=== PATIENT | female | born 1970 | race African-American/Black ===

== ENCOUNTER 2017-02-02 06:49 | Day surgery (SDC) | payer OTHER ==
[2017-01-30 17:45] VITALS: BMI 41.0
[2017-02-02] MEDS ORDERED: LIDOCAINE HCL 1%, 10 MG/ML (20ML VIAL) ONE ×2 (08:44→10:56)
[2017-02-02] MEDS ORDERED: MIDAZOLAM HCL 2 MG/2 ML SINGLE DOSE VIAL ONE (10:22)
[2017-02-02] MEDS ORDERED: PROPOFOL 20 ML ONE ×4 (10:22→11:10)
[2017-02-02] MEDS ORDERED: ceFAZolin SODIUM 1 GM VIAL IVPB ONE (10:48)
[2017-02-02] MEDS ORDERED: LIDOCAINE HCL 1%, 10 MG/ML (50 mL VIAL) IJ ONE (10:55)
[2017-02-02 12:03] VITALS: TEMP 97.7
[2017-02-02] MEDS ORDERED: oxyCODONE HCL 5 MG TABLET PO PRN (12:06)
[2017-02-02] MEDS ORDERED: ONDANSETRON 4 MG/2 ML VIAL IVPUSH PRN (12:06)
[2017-02-02] MEDS ORDERED: LACTATED RINGERS SOLUTION 1,000 ML IV SCH (12:15)
--- NOTE | 2017-02-02 13:06 | OP ---
DATE OF OPERATION: 02/02/2017 PREOPERATIVE DIAGNOSIS: Right breast ductal carcinoma in situ. POSTOPERATIVE DIAGNOSIS: Right breast ductal carcinoma in situ. PROCEDURE: Right breast bracket wire lumpectomy and primary reconstruction. SURGEON: Gudelia Vazquez MD ANESTHESIA: Local, IV sedation. ESTIMATED BLOOD LOSS: Minimal. COMPLICATION: None. DISPOSITION: Stable at end of procedure. INDICATION FOR PROCEDURE: The patient presented with a screening mammogram that noted a wide area of microcalcifications in the upper and upper inner right breast. In a needle biopsy that I could do under ultrasound, she had a palpable mass from the right breast wall at the 1 o'clock retroareolar location, showed a ductal carcinoma in situ that was ER/IL positive. She had an MRI that noted this wide area and a questionable area on the left, a biopsy of the left that was benign. Recommendation was a wire-localized lumpectomy and further management depending on the pathology results. The procedure was discussed, with all the questions answered. PROCEDURE IN DETAIL: Patient was brought to [facility], taken to breast imaging, where 2 wires were used to localize the wide area of calcifications in the upper, upper inner right breast. She was then brought to the operating room. After IV sedation, IV antibiotics, the right breast was prepped and draped in the usual sterile fashion. A radial incision was made in the upper inner right breast, once the area was anesthetized with 1% lidocaine without epinephrine. A wide lumpectomy was performed, to include the 2 wires posteriorly down to fat, then mediolaterally as well as I actually took the nipple down to dermis. As the calcification did seem to extend to the nipple but I did shave down the nipple to the dermis. This entire specimen was tagged with a long stitch lateral, short stitch superior, sent for specimen radiograph. The specimen radiograph showed all the calcifications to be within the specimen. They appeared slightly close in a couple edges but it was difficult to say because the specimen is folded. She tolerated the procedure well. Hemostasis was assured with electrocautery. There was a wide defect left from this wide lumpectomy, almost quadrantectomy of the upper inner right breast. Therefore, superior, inferior, medial, lateral flaps were raised and tissue transfer procedure was performed to fill in the defect that measured 10 cm x 10 cm. The parenchyma approximated in 3 layers of interrupted 2-0 Vicryl. Skin approximated with interrupted 3-0 Vicryl, running 4-0 Prolene. A sterile dressing with Tegaderm and 4 x 4 was applied. She tolerated the procedure well, was taken to recovery in good condition. Ronal FRANKS/[id number]
[2017-02-02 14:14] VITALS: BP 132/78; PULSE 86
--- NOTE | 2017-02-04 16:19 | PATH ---
Surgical Pathology Report Patient Name: PANKAJ NOLEN [facility]. Rec. #: [id number] /Age/Gender: 1970 (Age: 47) / F Account: [id number] Location: [facility] SURGICAL Taken: 02/02/2017 Received: 02/02/2017 Reported: 02/04/2017 Physicians: Gudelia Vazquez M.D. Specimen(s) Received RIGHT BREAST LUMPECTOMY Clinical History DCIS Final Diagnosis BREAST, RIGHT, LUMPECTOMY: MASS FORMING DUCTAL CARCINOMA IN SITU (DCIS), INTERMEDIATE NUCLEAR GRADE, SOLID, CRIBRIFORM AND FOCALLY PAPILLARY PATTERNS, WITH FOCAL APOCRINE FEATURES, CENTRAL COMEDO-TYPE NECROSIS, CALCIFICATIONS, LOBULAR EXTENSIONS AND PERIDUCTAL FIBROSIS. DCIS EXTENT: DCIS FORMS 2.6 CM MASS (GROSS MEASUREMENT); PRESENT ON 11 OF 11 EXAMINED SLIDES WITH THE GREATEST EXTENT ON ONE SLIDE OF 2.7 CM (MICROSCOPICALLY). SURGICAL RESECTION MARGINS: DCIS FOCALLY ABUTS CAUTERIZED INKED ANTERIOR MARGIN; DCIS IS <1 MM FROM LATERAL AND INFERIOR MARGINS, 1.0 MM FROM DEEP AND SUPERIOR MARGINS, 2.0 MM FROM MEDIAL MARGIN. SURROUNDING BREAST TISSUE: FIBROCYSTIC CHANGE WITH FOCAL USUAL DUCTAL HYPERPLASIA, CYSTIC-APOCRINE METAPLASIA, FOCAL ADENOSIS AND STROMAL FIBROSIS. PATHOLOGIC STAGING: REFER TO CHECKLIST BELOW. RECEPTOR STATUS: REFER TO CHECKLIST BELOW. Comment: Immunohistochemical stains for p63 and SMM-HC performed and interpreted [facility] on blocks 2, 4 and 9 highlight preserved myoepithelial cells around DCIS. No definitive invasion is identified. Comments DCIS of Breast: Surgical Pathology Cancer Case Summary Based on AJCC/UICC TNM, 7th edition Procedure _x_ Excision with image-guided localization Lymph Node Sampling __x_ Not performed Specimen Laterality _x_ Right Estimated size (extent) of DCIS : At least 2.6 cm mass (grossly) Number of blocks with DCIS: 11 Number of blocks examined: 11 Largest extent on one slide: 2.7 cm (microscopically) Nuclear Grade _x_ Grade II (intermediate) Necrosis _x_ Present, central (expansive "comedo" necrosis) Microcalcifications _x_ Present in DCIS Margins _x_ Margin positive for DCIS: anterior _x_ Margins close to (= 1 mm) DCIS: lateral, inferior, superior and deep _x_ Margin uninvolved by DCIS (=2mm): medial Lymph Node Involvement: _x_ Not applicable Pathologic Staging (pTNM) Primary Tumor (pT): pTis (DCIS) Regional Lymph Nodes (pN): pNX Biomarker Studies Results of ER and IL studies performed on prior biopsy ([id number]) at [facility] are as follows: ER (clone [id number] mouse monoclonal antibody by [employer]): 90% nuclear staining with moderate to strong intensity (Positive). IL (clone16 mouse monoclonal antibody by [employer]): 70% nuclear staining with weak to moderate intensity (Positive). Positive and negative controls (internal if applicable) show appropriate results. Formalin fixation and cold ischemic times are within current ASCO/CAP recommendations for ER, IL and Her2 testing. Electronically Signed Tani Gonzalez M.D. Gross Description Received fresh on an AccuGrid, labeled "right breast lumpectomy" is a 10.0 x 6.0 x 3.3 cm hair-yellow, irregular, portion of fibroadipose tissue with 2 needle localization wires present. There is a short suture marking the superior aspect and a long suture marking the lateral aspect, per the surgeon. There is no skin or nipple present. The specimen is inked as follows: superior and lateral blue; inferior green; medial yellow; anterior red; deep black. The specimen is serially sectioned from lateral to medial. Sectioning reveals a 2.6 x 2.0 x 1.5 cm hair, firm mass at 0.3 cm from the inferior margin and 0.3 cm from the deep margin grossly. Additionally, the mass is at 0.5 cm from the superior margin grossly. The remaining margins grossly appear clear of the mass. The remaining breast parenchyma displays multifocal white fibrous tissue. Spanish Professor sections are submitted in 11 cassettes as follows: 1-4-one full face section of mass each with inferior and deep margins; 0-6-xtyhwafp margin; 8-additional inferior margin; 9-anterior margin; 10-lateral margin; 11-medial margin. Time to fixation: <1h Total formalin fixation time: ~6h 02/02/201702/02/2017
== END 2017-02-02 14:14 | disposition home or self-care (01) ==
LOC: JASU-SURG 06:49
PROVIDERS: ATTEND Surgery
PROC: 0HX5XZZ Transfer Chest Skin, External Approach (ICD-10-PCS; 2017-02-02)
PROC: 0HBT0ZZ Excision of Right Breast, Open Approach (ICD-10-PCS; principal; 2017-02-02 10:00)
DX: D05.91 Unspecified type of carcinoma in situ of right breast (principal)
CPT/HCPCS: 19281; 84703; 88307-TC; 88341-TC; 88342-TC; 94760

== ENCOUNTER 2017-02-06 08:33 | Day surgery (SDC) | payer OTHER ==
[2017-02-05 15:59] VITALS: BMI 41.0
[~2017-02-06 08:33] MED LIST: LIDOCAINE HCL 1%, 10 MG/ML (20ML VIAL) IJ ONE
[2017-02-06] MEDS ORDERED: PROPOFOL 20 ML ONE ×3 (11:06→12:01)
[2017-02-06] MEDS ORDERED: MIDAZOLAM HCL 2 MG/2 ML SINGLE DOSE VIAL ONE (11:07)
[2017-02-06] MEDS ORDERED: ceFAZolin SODIUM 1 GM VIAL IVPB ONE (11:20)
[2017-02-06] MEDS ORDERED: ceFAZolin SODIUM 1 GM VIAL ONE (11:23)
[2017-02-06] MEDS ORDERED: LIDOCAINE HCL 1%, 10 MG/ML (20ML VIAL) IJ ONE ×2 (11:29)
[2017-02-06] MEDS ORDERED: LIDOCAINE HCL 1%, 10 MG/ML (20ML VIAL) ONE ×2 (11:30→11:44)
[2017-02-06] MEDS ORDERED: KETOROLAC TROMETHAMINE 30 MG/1 ML VIAL ONE (11:57)
[2017-02-06] MEDS ORDERED: oxyCODONE HCL 5 MG TABLET PO PRN (12:05)
[2017-02-06] MEDS ORDERED: ONDANSETRON 4 MG/2 ML VIAL IVPUSH PRN (12:05)
[2017-02-06] MEDS ORDERED: HYDROmorphone HCL CARPU-JECT 1 MG/1 ML DISP.SYRIN IVPUSH PRN (12:05)
[2017-02-06] MEDS ORDERED: LACTATED RINGERS SOLUTION 1,000 ML IV SCH (12:15)
[2017-02-06 13:34] VITALS: TEMP 98.2
[2017-02-06] MEDS ORDERED: ONDANSETRON 4 MG/2 ML VIAL ONE (14:20)
[2017-02-06 17:15] VITALS: BP 108/56; PULSE 80
--- NOTE | 2017-02-09 12:35 | OP ---
DATE OF OPERATION: 02/06/2017 PREOPERATIVE DIAGNOSIS: Right breast ductal carcinoma in situ. POSTOPERATIVE DIAGNOSIS: Right breast ductal carcinoma in situ. PROCEDURE: Right breast reexcision lumpectomy with primary reconstruction. SURGEON: Gudelia Vazquez MD ANESTHESIA: Local, IV sedation. ESTIMATED BLOOD LOSS: Minimal. COMPLICATION: None. DISPOSITION: Stable at end of procedure. INDICATION: The patient had a right lumpectomy for DCIS that showed multiple close and 1 positive margin. Therefore, my recommendation was reexcision. The procedure was discussed, with all the questions answered. PROCEDURE IN DETAIL: Patient was brought to [facility], taken in to the operating room IV sedation and IV antibiotics. The right breast was prepped and draped in the usual sterile fashion. The area in the upper right breast was anesthetized with 1% lidocaine without epinephrine. The prior incision in the right 1 o'clock radially oriented incision was excised with an ellipse of skin to have a new anterior skin margin. I then took several different margins. The skin was the new anterior margin with a long stitch lateral, short stitch superior. I then took a new lateral margin with a stitch at the old margin. I next took a new inferior margin with a long stitch lateral, short stitch superior. I then took a new superior margin, with a stitch marking the old margin. Number 4 is actually a right breast new inferior margin stitch marking the old margin and then I took a new superior margin with a stitch at the old margin. All these specimens were sent to Pathology in formalin. Ronal FRANKS/[id number]
--- NOTE | 2017-02-09 19:44 | OP ---
DATE OF OPERATION: 02/06/2017 PREOPERATIVE DIAGNOSIS: Right breast ductal carcinoma in situ. POSTOPERATIVE DIAGNOSIS: Right breast ductal carcinoma in situ. PROCEDURE: Right breast reexcision lumpectomy and primary reconstruction. SURGEON: Gudelia Greer M.D. ANESTHESIA: Local IV sedation. ESTIMATED BLOOD LOSS: Minimal. COMPLICATIONS: None. DISPOSITION: Stable. INDICATION FOR PROCEDURE: Patient had a right lumpectomy that noted several close margins and 1 margin at the anterior margin, therefore recommendation was a re-excision. The procedure was discussed with her, and all her questions answered. PROCEDURE IN DETAIL: Patient brought to [facility], taken into the operating room, and after IV sedation, IV antibiotics, the right breast was prepped in usual sterile fashion, the upper inner right breast anesthetized with 1% lidocaine without epinephrine. An ellipse of skin was taken sharply with a scalpel 15 blade as a new anterior margin that was overlying the lumpectomy, the prior lumpectomy cavity. This was tagged with a long stitch to lateral, short to superior. Sent as a new anterior margin right breast. Next, several other margins were taken as well. The next one was a right breast new lateral margin with stitch at the old margin. Next was a new inferior margin with a long stitch to lateral, short to superior. Next was a right breast new superior margin with stitch at the old margin, and last was a new posterior right breast margin with stitch at the old margin. Once all these specimens were sent to pathology for permanent section in formalin, hemostasis with electrocautery. There was a wide defect left, 10 cm x 10 cm, and therefore tissue transfer procedure was performed. Superior, inferior, medial flaps were raised, and the tissue was moved into the lumpectomy cavity, and the parenchyma was approximated in 2 layers of interrupted 2-0 Vicryl. The skin was then approximated with interrupted 2-0 Vicryl running 4-0 Biosyn. The sterile dressing of Tegaderm, 4x4s applied. She tolerated procedure well, was taken to recovery in good condition. GUDELIA GREER M.D. [id number]
--- NOTE | 2017-02-11 15:38 | PATH ---
Surgical Pathology Report Patient Name: PANKAJ NOLEN [facility]. Rec. #: [id number] /Age/Gender: 1970 (Age: 47) / F Account: [id number] Location: [facility] SURGICAL Taken: 02/06/2017 Received: 02/06/2017 Reported: 02/11/2017 Physicians: Gudelia Vazquez M.D. Specimen(s) Received A: RIGHT BREAST NEW ANTERIOR MARGIN B: RIGHT BREAST NEW LATERAL MARGIN C: RIGHT BREAST NEW INFERIOR MARGIN D: RIGHT BREAST NEW SUPERIOR MARGIN E: RIGHT BREAST NEW POSTERIOR MARGIN Clinical History DCIS Final Diagnosis A. BREAST, RIGHT, NEW ANTERIOR MARGIN, EXCISION: BENIGN SKIN WITH DERMAL SCAR FORMATION AND SURROUNDING INFLAMMATION. BENIGN BREAST TISSUE. NEGATIVE FOR DCIS. CHANGES CONSISTENT WITH PRIOR SURGICAL SITE PRESENT. B. BREAST, RIGHT, NEW LATERAL MARGIN, EXCISION: RESIDUAL DUCTAL CARCINOMA IN SITU (DCIS), INTERMEDIATE NUCLEAR GRADE, SOLID TYPE WITH CENTRAL NECROSIS AND APOCRINE FEATURES. DCIS IS >2.0 MM FROM THE NEW LATERAL MARGIN. CHANGES CONSISTENT WITH PRIOR SURGICAL SITE PRESENT. C. BREAST, RIGHT, NEW INFERIOR MARGIN, EXCISION: RESIDUAL DUCTAL CARCINOMA IN SITU (DCIS), INTERMEDIATE NUCLEAR GRADE, SOLID TYPE, WITH CENTRAL COMEDO-TYPE NECROSIS. DCIS IS 1.5 MM FROM THE MEDIAL MARGIN OF THIS SPECIMEN; AND >2.0 MM FROM OTHER MARGINS. SURROUNDING BREAST TISSUE WITH FOCAL ATYPICAL DUCTAL HYPERPLASIA (ADH) AND FIBROCYSTIC CHANGE WITH FOCAL USUAL DUCTAL HYPERPLASIA AND CYSTIC APOCRINE METAPLASIA. CHANGES CONSISTENT WITH PRIOR SURGICAL SITE PRESENT. Comment: immunohistochemical stain for e-cadherin performed an interpreted at [facility] on block C9 is positive supporting usual ductal hyperplasia. D. BREAST, RIGHT, NEW SUPERIOR MARGIN, EXCISION: BENIGN BREAST TISSUE WITH FIBROCYSTIC CHANGE. NEGATIVE FOR DCIS. CHANGES CONSISTENT WITH PRIOR SURGICAL SITE PRESENT. E. BREAST, RIGHT, NEW POSTERIOR MARGIN, EXCISION: BENIGN BREAST TISSUE WITH FIBROCYSTIC CHANGE. NEGATIVE FOR DCIS. CHANGES CONSISTENT WITH PRIOR SURGICAL SITE PRESENT. Electronically Signed Tani Gonzalez M.D. Gross Description A. Received in formalin labeled "right breast new anterior margin" is a 6.4 x 2.3 cm hair-brown, elliptical portion of skin excised to a depth of 1.3 cm. There is a short suture marking the superior aspect and a long suture marking the lateral aspect of the specimen, per the surgeon. The epidermal surface displays a 2.8 cm in length central, linear defect. The specimen is inked as follows: Superior blue; inferior green; lateral tip red; medial tip yellow; deep black. The specimen is serially sectioned from lateral to medial. The specimen is entirely and sequentially submitted in 11 cassettes with the medial tip in cassette 1 and the lateral tip in cassette 11. B. Received in formalin labeled "right breast new lateral margin" is a 4.8 x 4.4 x 1.6 cm irregular portion of fibroadipose tissue with a suture marking the old margin, per the surgeon. The new margin is inked green and the specimen is serially sectioned. The specimen is submitted entirely in 12 cassettes. C. Received in formalin labeled "right breast new inferior margin" is a 7.5 x 4.6 x 1.5 cm irregular portion of fibroadipose tissue with a short stitch marking the superior aspect and a long stitch marking the lateral aspect of the specimen, per the surgeon. The specimen is inked as follows: Superior and lateral blue; inferior green; medial yellow; anterior red; deep black. The specimen is serially sectioned from lateral to medial. Construction Scheduler sections are submitted in 11 cassettes as follows: 1-medial margin; 1-9-[id number] fibrous tissue with superior and inferior margins; 9-anterior margin; 10-deep margin; 11-lateral margin. D. Received in formalin labeled "right breast new posterior margin" is a 4.5 x 4.3 x 1.3 cm irregular portion of fibroadipose tissue with a suture marking the old margin, per the surgeon. The new margin is inked black and the specimen is serially sectioned. Construction Scheduler sections are submitted in 5 cassettes. E. Received in formalin labeled "right breast new posterior margin" is a 7.4 x 4.8 x 1.5 cm irregular portion of fibroadipose tissue with a suture marking the old margin, per the surgeon. The new margin is inked black and the specimen is serially sectioned. Construction Scheduler sections are submitted in 8 cassettes. 02/06/201702/06/2017
== END 2017-02-06 17:00 | disposition home or self-care (01) ==
LOC: JASU-SURG 08:33
PROVIDERS: ATTEND Surgery
PROC: 0JX60ZB Transfer Chest Subcutaneous Tissue and Fascia with Skin and Subcutaneous Tissue, Open Approach (ICD-10-PCS; 2017-02-06)
PROC: 0HBT0ZZ Excision of Right Breast, Open Approach (ICD-10-PCS; principal; 2017-02-06 10:00)
DX: D05.91 Unspecified type of carcinoma in situ of right breast (principal)
CPT/HCPCS: 84703; 88305-TC; 88342-TC; 94760

== ENCOUNTER 2017-05-28 05:02 | Inpatient (IN) | payer OTHER ==
[2017-05-27 12:12] VITALS: BMI 42.0
[2017-05-28] MEDS ORDERED: LIDOCAINE HCL 4% PRESERVE-FREE 5 ML AMP ONE (07:14)
[2017-05-28] MEDS ORDERED: ISOSULFAN BLUE 10 MG/ML VIAL SQ ONE (07:14)
[2017-05-28] MEDS ORDERED: HEPARIN NA (PORCINE) 5,000 UNITS/ML 1ML VIAL ONE (07:14)
[2017-05-28] MEDS ORDERED: PROPOFOL 20 ML ONE ×5 (07:38→13:29)
[2017-05-28] MEDS ORDERED: ROCURONIUM BROMIDE 50 MG/5 ML VIAL ONE ×4 (07:38→13:22)
[2017-05-28] MEDS ORDERED: MIDAZOLAM HCL 2 MG/2 ML SINGLE DOSE VIAL ONE ×2 (07:38)
[2017-05-28] MEDS ORDERED: LIDOCAINE HCL 1%, 10 MG/ML (20ML VIAL) ONE (07:43)
[2017-05-28] MEDS ORDERED: BUPIVACAINE HCL/PF 0.25% (2.5MG/ML) 10 ML VIAL ONE (07:43)
[2017-05-28] MEDS ORDERED: BUPIVACAINE LIPOSOME/PF (EXPAREL) 266 MG/20 ML VIAL NR ONE (08:30)
[2017-05-28] MEDS ORDERED: ceFAZolin SODIUM 1 GM VIAL IVPB ONE (09:25)
[2017-05-28] MEDS ORDERED: ceFAZolin SODIUM 1 GM VIAL ONE ×3 (09:31→18:20)
[2017-05-28] MEDS ORDERED: HYDROmorphone HCL/PF 1 MG/ML VIAL (FOR PYXIS CHARGING ONLY) ONE ×2 (09:38→09:53)
[2017-05-28] MEDS ORDERED: HEPARIN NA (PORCINE) 5,000 UNITS/ML 1ML VIAL SQ ONE (09:49)
[2017-05-28] MEDS ORDERED: DESFLURANE GAS 240 ML BOTTLE IH ONE (10:11)
[2017-05-28] MEDS ORDERED: PHENYLEPHRINE HCL 10 MG/1 ML SINGLE DOSE VIAL ONE ×2 (10:50→16:19)
--- NOTE | 2017-05-28 13:58 | OP ---
Operative Note - Note: Operative Date: 05/28/17 Pre-Operative Diagnosis: Lung injury Operation: Left upper lobe wedge resection/repair of lung injury Findings: tiny cautery injury that appeared to be associated with air-leak Post-Operative Diagnosis: Same as Pre-op Surgeon: Jesus Rodriguez Anesthesia: General Specimens Removed: ISSCA wedge Estimated Blood Loss (mls): 5
[2017-05-28] MEDS ORDERED: LIDOCAINE HCL 4% PRESERVE-FREE 5 ML AMP NR ONE (15:36)
[2017-05-28] MEDS ORDERED: GLYCOPYRROLATE 0.2 MG/1 ML VIAL ONE (19:37)
[2017-05-28] MEDS ORDERED: NEOSTIGMINE METHYLSULFATE 0.5 MG/ML - 10 ML MDV ONE (19:37)
[2017-05-28] MEDS ORDERED: ONDANSETRON 4 MG/2 ML VIAL ONE (19:44)
[2017-05-28] MEDS ORDERED: DEXAMETHASONE SOD PHOSPHATE 4 MG/1 ML VIAL ONE (19:44)
[2017-05-28] MEDS ORDERED: KETOROLAC TROMETHAMINE 30 MG/1 ML VIAL ONE (19:48)
[2017-05-28] MEDS ORDERED: ONDANSETRON 4 MG/2 ML VIAL IVPUSH PRN (20:46)
[2017-05-28] MEDS ORDERED: DEXAMETHASONE SOD PHOSPHATE 4 MG/1 ML VIAL IVPUSH PRN (20:46)
[2017-05-28] MEDS ORDERED: PROCHLORPERAZINE MALEATE 25 MG SUPP.RECT PR PRN (20:48)
[2017-05-28] MEDS ORDERED: METOCLOPRAMIDE HCL INJECTION 10 MG/2 ML VIAL IVPB PRN (20:48)
[2017-05-28] MEDS: HYDROmorphone HCL CARPU-JECT 2 MG/1 ML DISP.SYRIN ONE ×2 (21:00→21:10)
[2017-05-28] MEDS ORDERED: HYDROmorphone *PCA* 10MG/50ML DISP.SYRIN PCA ONE (21:00)
[2017-05-28] MEDS ORDERED: HEPARIN NA (PORCINE) 5,000 UNITS/ML 1ML VIAL SQ SCH (21:00)
[2017-05-28] MEDS ORDERED: D5-1/2NS+10 MEQ KCL - 1,000 ML IV SCH (21:00)
[2017-05-28] MEDS ORDERED: LACTATED RINGERS SOLUTION 1,000 ML IV SCH (21:00)
[2017-05-28] MEDS ORDERED: HYDROmorphone HCL CARPU-JECT 2 MG/1 ML DISP.SYRIN IVPUSH ONE (21:37)
--- NOTE | 2017-05-28 22:01 | OPR ---
DATE OF OPERATION: 05/28/17 ATTENDING SURGEON: Isaac Cárdenas CO-SURGEON: Barron Reyna FLIGHT COMMUNICATIONS SPECIALIST: Nga Charles PREOPERATIVE DIAGNOSIS: Right breast cancer and left acquired absence of breast POSTOPERATIVE DIAGNOSIS: same PROCEDURE PERFORMED: 1. Bilateral breast reconstruction with JINA (deep inferior epigastric perforators) flap. 2. Bilateral rib resection. 3. Bilateral ligation of SIEV (superficial inferior epigastric vein). 4. Bilateral transversus abdominis plane block for postoperative pain relief. COMPLICATIONS: None. ESTIMATED BLOOD LOSS: 400 mL DESCRIPTION OF PROCEDURE: The patient was brought to the OR in conjunction with Anne-Marie , the breast surgeon. Please see her operative note for details of her portion of the procedure. A bilateral mastectomy was performed by anne-marie . Simultaneously , Dr. Cárdenas and Dr. Reyna initiated the breast reconstruction at the abdomen. At the abdomen the previously marked ellipse of tissue from just above the umbilicus down to the pubic hairline was incised using a 15 blade scalpel. Dissection was carried down through the subcutaneous tissues using electrocautery, beveling away from the flap in order to increase the volume of the flap. At the right side, 6 cm off the midline, the superficial inferior epigastric artery and vein were identified. They were meticulously freed of all surrounding tissue, and they were traced down to their origin in the groin where they were ligated and divided and kept in continuity with the flap in case they were needed later in the flap for additional inflow or outflow to the flap. At the left side, 6 cm off the midline the left superficial inferior epigastric artery and vein were identified. Using microsurgical technique, they were meticulously dissected down to their origin in the groin where they were ligated and divided. They were kept in continuity with the left JINA flap in case they were needed later in the case for additional inflow or outflow to the flap. Attention was first paid to harvest of the right JINA flap. The right JINA flap was elevated in a lateral to medial direction using electrocautery until the lateral edge of the rectus abdominis sheath was encountered. At this point, meticulous dissection continued using bipolar cautery, and the dominant perforators to this side, that were identified preoperatively on the MRA, were identified and preserved and kept in continuity with the flap. The anterior rectus fascia was then incised in a superior and inferior direction, and a small cuff of fascia, less than 1 cm, was kept in continuity with the perforators and freed from the surrounding tissue. The perforators were then dissected free of all surrounding tissue. The rectus muscle was atraumatically split in line with its longitudinal fibers, and the perforators were followed down through the rectus muscle to the lateral main branch of the deep inferior epigastric artery. Two perforators were kept in continuity with the flap and dissected in this technique. The main pedicle was then traced back to its origin in the groin where all small branches along the way were clipped and divided. at the groin the takeoff of the deep inferior epigastric artery and vein were identified. On the right side, there was noted to be one large deep inferior epigastric artery and two accompanying large venae comitantes. A single green clamp was applied to the pedicle, medium automatic clips were placed around the deep inferior epigastric artery and two accompanying veins. They were then divided. The flap was weighed and noted to weigh ___1295____ gm. Simultaneously, at the left chest, exposure of the internal mammary artery and vein was performed. The mastectomy pocket was thoroughly irrigated, all points of bleeding were stopped with electrocautery. The pectoralis major muscle was then divided in line with its longitudinal fibers overlying the third rib. Gelpi retractors were placed for exposure. The third rib was scored using electrocautery, and then, the perichondrium surrounding the cartilaginous portion of the third rib was elevated using a periosteal elevator. Then, 2 cm of cartilaginous portion of the rib were removed using a rongeur, and under loupe magnification, the posterior perichondrium was elevated using microsurgical technique and bipolar cautery. Meticulous dissection was performed, and the internal mammary artery and vein were identified. The internal mammary artery and vein were freed of all surrounding tissue for a total length of 2 cm in order to allow microsurgical anastomoses. The operating microscope was brought into position on the left side. The right JINA flap was rotated 180 degrees. It was then placed at the right chest. It was sutured in position using 2-0 Vicryl sutures for temporary securing. The pedicle was placed in alignment with the internal mammary artery and vein. Under the operating microscope, the internal mammary vein had a single green clip applied proximally and a single green clip applied distally, and it was divided in the middle using straight microscissors. The vein lumen was irrigated and measured, and it was noted that a 3 -mm elephant tamer would fit well upon the internal mammary vein. The two veins of the flap pedicle were measured, and it was noted that 2.5 -mm elephant tamer would fit well upon each of these veins. The coupling device was loaded with a 3____ -mm elephant tamer, which was lowered into the operative field under the operating microscope. The antegrade pedicle vein was brought up and through the coupling device. It was everted over the coupling spikes. It was secured in position using the J-Hole. The lumen was irrigated with heparinized saline solution, and the elephant tamer was lowered adjacent to the antegrade portion of the internal mammary vein, the cut end of which was brought up and through the coupling device, everted over the coupling spikes, secured in position using the J-Hole. The lumen was then irrigated with heparinized saline solution. It was noted to be in good position and free of debris. The elephant tamer was closed, creating a secured couple anastomosis. The single green clamp was removed, and there was noted to be excellent flow across the anastomosis. Attention was then paid to the retrograde vein. The veins were measured and a 2.5 mm elephant tamer was selected. The second vein of the pedicle was then brought up and through a 2.5 mm elephant tamer. It was everted over the coupling spikes. It was secured in position using the J-Hole. The elephant tamer was then lowered adjacent to the retrograde internal mammary vein, the cut end of which was brought up and through the coupling device, everted over the coupling spikes, and secured in position using the J-Hole. The lumens were irrigated, noted to be free of debris and in good position. The elephant tamer was closed, and a secured couple anastomosis was created. The single green clamp was removed, and there was noted to be excellent flow across the anastomosis. Attention was then paid to the arterial anastomosis. The pedicle artery was placed in alignment with the internal mammary artery. The internal mammary artery had a single green clamp applied proximally, and a medium automatic green clip applied distally, and it was divided using a straight microscissor. The lumen was irrigated and noted to be free of debris and healthy in appearance. The arterial artery of the flap was placed in alignment with the internal mammary artery, and a hand-sewn anastomosis was performed. The 8-0 nylon was used in an interrupted fashion to perform the hand-sewn anastomosis. The single green clamp was removed, and there was noted to be strong healthier flow across the anastomosis with a very strong audible signal using the hand-held Doppler. At this point, an implantable Doppler was placed for monitoring of the flap postoperatively. Using the Ornelas dissector, a small window was created around the pedicle artery. The cuff of the implantable Doppler was passed around this. It was then secured in position using MicroClips and hooked to the Doppler box where there was noted to be a strong bounding signal within the pedicle artery. This was left attached to the Doppler box and monitored throughout the entirety of the rest of the case, and there was excellent flow throughout the entire rest of this case. The operating microscope was removed. Flap was gently placed within the mastectomy pocket while monitoring the entire time. There was noted to be excellent shape to the flap and the skin was temporarily closed using skin staplers, and attention was paid to reconstruction of the contralateral side. At the left abdomen, the left JINA flap was elevated in a lateral to medial direction using electrocautery until the lateral edge of the rectus abdominis muscle was encountered. Then, dissection continued using bipolar cautery in a meticulous fashion using loupe magnification, and the two dominant perforators identified on the preoperative MRA were encountered and preserved. They were circumferentially freed. An incision was made in the anterior rectus fascia in a superior and inferior direction. A small cuff of fascia was kept adherent to the perforators, approximately 1 cm in size. The perforators were followed down into the rectus muscle freeing all small branches as necessary. The rectus muscle was atraumatically split using Gelpi retractors, and the perforators were traced down to the left deep inferior epigastric artery pedicle. The pedicle was then traced down to its origin in the groin, clipping and dividing all small branches as necessary. At the groin, there was noted to be one large artery and two large venae comitantes. These were clipped with the medium automatic clip material distributor and divided, and the flap was weighed and noted to weigh approximately 1345 gm. Simultaneous to this dissection, at the right chest, exposure of the internal mammary artery and vein was performed. The mastectomy pocket was irrigated, all points of bleeding were stopped with electrocautery. The pectoralis major muscle was divided overlying the third rib in line with its longitudinal fibers. The underlying third rib was exposed. The perichondrium was scored using electrocautery and then freed using a periosteal elevator. Then, 2 cm of cartilaginous portion of the rib were resected using a large rongeur. Under loupe magnification, the posterior perichondrium was elevated and the internal mammary artery and vein were identified. All small branches were divided, and the internal mammary artery and vein were exposed for a length of 2 cm in order to allow microsurgical anastomosis. The left JINA flap was rotated 180 degrees. It was placed at the left chest and temporarily secured in position using 2-0 Vicryl sutures. The pedicle of the flap was placed in alignment with the internal mammary artery and vein. The operating microscope was brought into position. Under the operating microscope, attention was first paid to the venous anastomosis. The internal mammary vein had a clip applied distally and a single green clamp applied Proximally and distally. It was then divided using straight microscissors. The lumen was measured, and noted to be 3 mm. The pedicle vein was measured and noted to be mm. A coupling device was loaded with a 3 _ -mm elephant tamer. It was lowered into the operative field under the operating microscope. The cut end of the pedicle vein was brought up and through the elephant tamer, everted over the coupling spike, secured in position using the J-Hole. The lumen was irrigated with heparinized saline solution, and it was noted to be in good potion and free of all debris. The elephant tamer was lowered adjacent to the internal mammary vein antegrade portion, the cut end of which was brought up and through the coupling device, everted over the coupling spikes, secured in position using the J-Hole, irrigated with heparinized saline solution, noted to be free of debris and in good position. The elephant tamer was closed, creating a secured couple anastomosis. The single green clamp was removed, and there was noted to be excellent flow across the venous anastomosis. Attention was then paid to the retrograde vein. The veins were measured and a 3 mm elephant tamer was selected. The second vein of the pedicle was then brought up and through a 3 mm elephant tamer. It was everted over the coupling spikes. It was secured in position using the J-Hole. The elephant tamer was then lowered adjacent to the retrograde internal mammary vein, the cut end of which was brought up and through the coupling device, everted over the coupling spikes, and secured in position using the J-Hole. The lumens were irrigated, noted to be free of debris and in good position. The elephant tamer was closed, and a secured couple anastomosis was created. The single green clamp was removed, and there was noted to be excellent flow across the anastomosis. Attention was then paid to the arterial anastomosis. The internal mammary artery had a medium clip applied distally, a single green clamp applied proximally. It was then divided using straight microscissors. The lumen was irrigated and noted to be free of debris and healthy in appearance. The pedicle artery was placed in alignment with the internal mammary artery, and a hand-sewn anastomosis was performed using an 8-0 nylon suture in an interrupted fashion. After completion of the hand-sewn anastomosis, the single green clamp was removed, and there was noted to be excellent strong pulsatile flow across the arterial anastomosis and a bounding pedicle. The pedicle was interrogated using the hand-held Doppler. There was noted to be strong, healthy pulsatile flow. For postoperative monitoring, the decision was made to place an implantable Doppler. A small window was created around the pedicle artery using the Ornelas dissector. The Agavideo implantable Doppler cuff was passed around this and secured in position using MicroClips. The Doppler was hooked to the Doppler box, and it was noted to have a strong pulsatile signal. This was monitored throughout the entirety of the rest of the case. The operating microscope was then removed from the field. The flap was gently placed within the mastectomy cavity. The skin incisions were temporarily closed using skin staplers, and there was noted to be excellent shape and symmetry between the left and right breasts. Attention was then paid to closure of the left and right side. The left and right JINA flaps were appropriately shaped, recreating a beautiful natural lateral sweep to the breasts and a sharp inframammary fold. The skin paddle of the flaps was marked to replace the areola in a circular pattern. This was preserved. The rest of the skin along the flaps was deepithelialized using facelift scissors. The flaps were then inset in the appropriate position, and skin incisions were closed in multiple layers with 3-0 PDS as the deep layer and 4-0 Monocryl as the final running subcuticular closure. At the left and right side, prior to closure, an intercostalnerve block was performed using 0.25% Marcaine, 15 mL of 0.25% Marcaine was used on the left and 15 mL was used on the right, injecting small amounts of Marcaine adjacent to the intercostal nerve and rib space 2-7 in order to provide Postoperative pain relief. Prior to closing the incisions, a No. 19 Miguel drain was placed on the left and right side and brought out through a small separate stab wound incision. Attention was then paid to closure of the abdomen. The anterior rectus fascia including both the anterior layer and posterior layer of anterior rectus fascia was reapproximated using 0 PDS sutures in a figure-of-8 fashion with one suture placed every centimeter. After reapproximating the fascia, this was then overrun with a 0 V-Loc PDS suture in multiple layers in order to plicate and strengthen the closure. In the epigastric area, there was noted to be a small amount of bulging and a central plication was performed using a 0 V-Loc suture in a running fashion. The patient had an excellent shape to the abdomen after closure of the fascia, and the skin and subcutaneous flap was advanced in the inferior direction. A low transverse incision was then closed in multiple layers with 0 PDS as the first layer and 3-0 V-Loc as the final running subcuticular closure. The umbilicus was brought up to and out through an inverted V-shaped incision and inset using 4-0 Monocryl. At the abdomen prior to closure, a transversus abdominis plane block was performed at the left and right side using 0.25% Marcaine, 15 mL of Marcaine was introduced through multiple small injections in the transversus abdominis plane on the left and right side in order to provide postoperative pain relief; 15 mL of Marcaine was used on the left side, and 15 mL of Marcaine was used on the right side. Also, at the abdomen, a left and right 19 miguel abdominal drain was placed prior to closure. After closure of the incisions, sterile dressings were applied of 0.5-inch Steri-Strips to the incisions. The drains were placed to bulb suction,and the patient was awakened from anesthesia in stable condition. She tolerated the procedure well and there were no complications.
--- NOTE | 2017-05-28 22:03 | PN ---
Progress Note (short form) - Note Progress Note: Flaps bilaterally viable, good flow signals, flaps warm and soft with good color. VSS AF, CXR pending, LUDMILA thin and functioning, bedrest, Garcia overnight, continuous flap monitoring.
--- NOTE | 2017-05-28 23:41 | CONSULT ---
Consult Consult Specialty:: PULM / CCM Referred by:: Dr. Gudelia Vazquez Reason for Consultation:: PTX - History of Present Illness Chief Complaint: PTX History of Present Illness: Ms. Ngo is a 47 y/o woman w/ breast CA now s/p B/L mastectomy w/ flaps. U/ A from OR pt on continuous flap monitoring, R LUDMILA drain, L CT, & Garcia. Pt extubated in NAD. Doing well. 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 Cardio/Vascular: No: AFIB, HTN Pulmonary: No: Asthma, COPD Gastrointestinal: No: Cancer, GI Bleed Hepatobiliary: No: Cirrhosis Renal/: No: Renal Failure ...LMP: 05/13/17 Heme/Onc: No: Anemia Infectious Disease: No: AIDS, C-Diff, HIV Psych: No: Addictions Rheumatology: No: Lupus ENT: No: Allergic Rhinitis Endocrine: No: Hyperparathyroidism, Hyperthyroidism - Past Surgical History Past Surgical History: Yes: Mastectomy - Alcohol/Substance Use Hx Alcohol Use: No - Smoking History Smoking history: Never smoked Have you smoked in the past 12 months: No - Social History ADL: Independent History of Recent Travel: No Home Medications - Allergies Allergies/Adverse Reactions: Allergies Allergy/AdvReac Type Severity Reaction Status Date / Time No Known Allergies Allergy Verified 05/28/17 07:38 - Home Medications Home Medications: Ambulatory Orders Iron 50 mg PO DAILY 01/30/17 Family Disease History - Family Disease History Family History: Unable to Obtain (Post-Op Sedation) Review of Systems Unable to obtain ROS, reason: Post-Op Sedation Physical Exam Vital Signs: Vital Signs Temperature 98.4 F 05/28/17 22:40 Pulse Rate 68 05/28/17 22:40 Respiratory Rate 16 05/28/17 22:40 Blood Pressure 100/40 05/28/17 22:40 O2 Sat by Pulse Oximetry (%) 100 05/28/17 22:40 Constitutional: Yes: Well Nourished, No Distress, Calm Eyes: Yes: WNL, Conjunctiva Clear, EOM Intact HENT: Yes: WNL, Atraumatic, Normocephalic Neck: Yes: WNL, Supple, Trachea Midline Cardiovascular: Yes: WNL, Regular Rate and Rhythm Respiratory: Yes: WNL, Regular, CTA Bilaterally Gastrointestinal: Yes: WNL, Hypoactive Bowel Sounds ...Rectal Exam: Yes: Deferred Renal/: Yes: WNL Breast(s): Yes: Other (s/p B/l Mastectomy w/ Flap.) Musculoskeletal: Yes: WNL Extremities: Yes: WNL Edema: No Peripheral Pulses WNL: Yes Integumentary: Yes: WNL Wound/Incision: Yes: Clean/Dry, Well Approximated Neurological: Yes: WNL ...Motor Strength: WNL Psychiatric: Yes: WNL Labs: Laboratory Tests 05/28/17 05/28/17 05/28/17 05:07 08:27 08:27 Urine HCG, Qual Negative Blood Type A POSITIVE A POSITIVE Antibody Screen Negative Imaging - Results Chest X-ray: Image Reviewed (05/28: R & L CTs, L LL collapse, otherwise clear (My Read).) EKG: Image Reviewed (12 LEAD 05/18: RSR in the 60's w/o ectopy, normal axis, no ST or T-wave aberrations, QTc = 398ms, no acute process (My Read).) Problem List - Problems (1) Breast CA Code(s): C50.919 - MALIGNANT NEOPLASM OF UNSP SITE OF UNSPECIFIED FEMALE BREAST (2) Post-mastectomy pain Code(s): G89.18 - OTHER ACUTE POSTPROCEDURAL PAIN Assessment/Plan ASSESS: This is a 47 y/o woman w/ breast CA now s/p B/L mastectomy w/ flaps on continuous flap monitoring, R LUDMILA drain, L CT, doing well. PLAN: -Supp FiO2 for an SpO2 > 92% -Nebs -IS -L CT --> LWS -Continuous flap monitoring a/p surgery -Wound care a/p Surgery -Cont Post-Op Abx -Strict I's & O's -Trend BUN/Cr -Replete e-lytes prn -Zofran -Post-Op Pain Management w/ dilaudid LOOP TENDER -SQH -Pepcid DGL [address] [facility] PULM / CCM
[2017-05-29] MEDS: HYDROmorphone *PCA* 10MG/50ML DISP.SYRIN PCA SCH ×2 (01:35→21:05)
[2017-05-29] MEDS: ASPIRIN 325 MG TABLET PO SCH ×2 (01:52→09:13)
[2017-05-29] MEDS: CEFAZOLIN (PRE-DOCKED) 50 ML IVPB SCH ×3 (01:53→17:29)
[2017-05-29] MEDS ORDERED: CEFAZOLIN 1 GM/D5W 50 ML IVPB SCH (02:00)
[2017-05-29] MEDS: PROMETHAZINE HCL 25 MG/1 ML VIAL IVPB PRN ×2 (02:04→11:08)
[2017-05-29] MEDS: HEPARIN NA (PORCINE) 5,000 UNITS/ML 1ML VIAL SQ SCH ×3 (07:35→21:27)
--- NOTE | 2017-05-29 08:36 | PN ---
Progress Note (short form) - Note Progress Note: Flaps viable with good color, warmth and flow signals. Mildly tachycardic overnight in 100-110, otherwise VSS AF UOP 400 overnight, vences to remain until transfer later, will monitor UOP OOB to chair today Duplex this morning given DVT risk start SQ heparin No PTX on CXR, CT surg to manage chest tube Labs pending. If stable, Plan for transfer at 24 hour good
[2017-05-29] MEDS ORDERED: ACETAMINOPHEN 325 MG TABLET (FP) PO PRN (08:49)
[2017-05-29 08:52] LABS: MCHC 31.4 g/dl (32.0-36.0); MEAN CELL VOLUME 79.7 fl (80-96); PLATELET COUNT 255 K/MM3 (134-434); RDW 15.7 % (11.6-15.6); WHITE BLOOD COUNT 9.7 K/mm3 (4.0-10.0)
[2017-05-29] MEDS: D5-1/2NS+10 MEQ KCL - 1,000 ML IV SCH (08:52)
--- NOTE | 2017-05-29 09:00 | PN ---
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 HR up Mild Fever Condition guarded No apparent anesthesia related complications Continue MMD UNIT TEACHER Jonah Rubio MD
[2017-05-29 09:18] LABS: ANION GAP 5 (8-16); CALCIUM 7.9 mg/dL (8.5-10.1); CO2 28 mmol/L (21-32); CREATININE 0.8 mg/dL (0.55-1.02); GLUCOSE,RANDOM 186 mg/dL (74-106); MAGNESIUM 1.8 mg/dL (1.8-2.4); PHOSPHOROUS 2.2 mg/dL (2.5-4.9)
[2017-05-29 09:30] LABS: INR 1.25 (0.82-1.09); PROTHROMBIN TIME (PATIENT) 13.8 SEC (9.98-11.88)
--- NOTE | 2017-05-29 09:44 | PN ---
Progress Note (short form) - Note Progress Note: POD #1 47 yo female underwent bilateral JINA flap with Drs. Cárdenas and Axel. During the procedure, the left parietal pleura was injured with the cautery. A small air leak was noted at that time. Dr. Rodriguez called in where he performed a ISSAC wedge resection/repair of lung injury. Then tested the sealed lung under water and no bubbles identified. A chest tube placed to waterseal and has remained. Patient is resting comfortably. Pain controled well. Denies n/v/f/c, palpitations, SALDANA, SOB or hemoptysis. Last Vital Signs Temp Pulse Resp BP Pulse Ox 100.0 F H 111 H 16 119/57 100 // 08:48 05/29/17 07:45 05/29/17 07:45 05/29/17 07:45 05/28/17 22:40 Gen: alert. nad Left chest tube: No air leak. Problem List - Problems (1) Breast CA Assessment/Plan: POD #1 s/p b/l JINA; repair ISSAC injury during procedure with ISSAC wedge resection. Chest tube removed on rounds fully intact. Occlusive dressing applied Post-pull film ordered Cont pain management Code(s): C50.919 - MALIGNANT NEOPLASM OF UNSP SITE OF UNSPECIFIED FEMALE BREAST
--- NOTE | 2017-05-29 10:04 | OPR ---
Patient Name: Tawana Ngo MR#: [id number] Procedure Date: 05/28/2017 Preoperative Diagnosis: lung injury Postoperative Diagnosis: same Procedure: 1. Mini-thoracotomy without rib-spreading; 2. Wedge resection repair of left upper lobe. Indication: as above Surgeon(s): Dr. Jesus Rodriguez Anesthesia: General Endotracheal Wound Classification: Clean Antibiotic Prophylaxis: n/a Findings: 1. Tiny cautery injury to lung apparent near pericostal dissection: wedge- resected and no air-leak after. Specimens: left upper lobe wedge for pathology. Complications: none Drains / Tubes / Catheters: 1 chest tube. Hardware / Implants: na Blood / Fluid Losses: see Dr. Cárdenas and Dr. Aguero report. Blood / Fluids Administered: per anesthesia Post-Operative Condition: stable Indications: This patient is a 47 year-old female with breast cancer who was undergoing reconstruction by Dr. Cárdenas and Dr. Reyna. As part of the procedure (JINA), there was pericostal dissection to expose the mammary. On the left side the pleural space was entered and a tiny lung injury was caused that had obvious air-leak. I was called for intraoperative consultation. Details of Procedure: The patient was already positioned supine and there was a small tiny thoracotomy via dissection around the rib where the mammary was exposed. It was easy to see the air-leak while the patient was ventilated. I opened the intercostal space farther and then exposed the tiny injury to the lung. I gently handled this with a ringed forceps and held ventilation and used the purple load to do a small wedge resection thus repairing the injury. Ventilation was re-initiated and saline was placed in the chest. There was no longer an air-leak. At this point, a chest tube was placed and secured. The other side of the surgery continued and the patient tolerated it well. I was available afterwards for postoperative management.
[2017-05-29] MEDS ORDERED: SODIUM CHLORIDE 1,000 ML IV STA ×3 (10:18→14:00)
[2017-05-29 10:54] LABS: ALBUMIN 2.4 g/dl (3.4-5.0); BILIRUBIN,DIRECT 0.1 mg/dL (0.0-0.2); BILIRUBIN,TOTAL 0.3 mg/dL (0.2-1.0); TOT PROT 5.2 g/dl (6.4-8.2)
--- NOTE | 2017-05-29 11:22 | OP ---
DATE OF OPERATION: 05/28/2017 PREOPERATIVE DIAGNOSIS: Right breast ductal carcinoma in situ, BRCA2 positive. POSTOPERATIVE DIAGNOSIS: Right breast ductal carcinoma in situ, BRCA2 positive. PROCEDURE: Bilateral total mastectomy. SURGEON: Gudelia Vazquez MD SUPERINTENDENT CUSTODIAN JANITOR: Charly Schmid MD ANESTHESIA: General, paravertebral block. ESTIMATED BLOOD LOSS: 300 mL. DRAINS: None. COMPLICATIONS: None. DISPOSITION: Stable. INDICATIONS: The patient had a right breast lumpectomy for ductal carcinoma in situ, and her genetic testing came back as BRCA2 positive. She wanted to go ahead and a mastectomy. The procedure was discussed with all of the questions answered. She met with Dr. Cárdenas from Plastic Surgery to consider reconstruction. PROCEDURE IN DETAIL: The patient was brought to [facility] and taken into the operating room. After a paravertebral block and induction off and on general anesthesia, IV antibiotics were given. The chest and abdomen were prepped and draped in the usual sterile fashion. First, a left mastectomy was performed. The ellipse of skin that was drawn out by Dr. Cárdenas was used as a vertical mastectomy incision to include the nipple areola. Superior, inferior, medial, and lateral flaps were raised, and the breast was reflected off the pectoralis muscle, tagged with a stitch at the lateral edge, and sent as a left mastectomy. Hemostasis was assured with electrocautery. Next, a right mastectomy was performed. The ellipse of skin marked out by Dr. Cárdenas was used to include the nipple areolar complex. Superior, inferior, medial, and lateral flaps were created. The breast was reflected off the pectoralis muscle and tagged with a stitch at the lateral edge and sent as a right mastectomy. Hemostasis was assured with electrocautery. The patient was then left with Dr. Cárdenas and Dr. Reyna to finish the reconstruction part of the procedure. Ronal [id number]
--- NOTE | 2017-05-29 12:38 | PN ---
Teaching Attending Note Name of Resident: Tay Harris ATTENDING PHYSICIAN STATEMENT I saw and evaluated the patient. I reviewed the resident's note and discussed the case with the resident. I agree with the resident's findings and plan as documented. SUBJECTIVE: Patient seen and examined in the ICU. Tachycardia and elevated lactic acid noted. Awake and alert. Reports generalized fatigue and body aches. CT removed -> no PTX noted on repeat CXR. Intake & Output 05/26/17 05/27/17 05/28/17 05/29/17 23:59 23:59 23:59 23:59 Intake Total 7050 3890 Output Total 1542 775 Balance 5508 3115 Weight 245 lb Last Vital Signs Temp Pulse Resp BP Pulse Ox 100.0 F H 110 H 20 139/77 100 05/29/17 08:48 05/29/17 12:17 05/29/17 12:17 05/29/17 12:17 05/29/17 09:00 Active Medications Acetaminophen (Tylenol -) 650 mg PO Q6H PRN PRN Reason: FEVER OR PAIN Last Admin: 05/29/17 09:14 Dose: 650 mg Aspirin (Asa -) 325 mg PO DAILY [facility] Last Admin: 05/29/17 09:13 Dose: 325 mg Dexamethasone Sodium Phosphate (Decadron Injection -) 4 mg IVPUSH ONCE PRN PRN Reason: NAUSEA AND/OR VOMITING Diphenhydramine HCl (Benadryl Injection -) 12.5 mg IVPUSH ONCE PRN PRN Reason: FOR ITCHING Fentanyl (Sublimaze Injection -) 50 mcg IVPUSH [id number] PRN PRN Reason: PAIN Stop: 05/31/17 20:47 Heparin Sodium (Porcine) (Heparin -) 5,000 unit SQ BID [facility] Last Admin: 05/29/17 09:13 Dose: 5,000 unit Hydromorphone HCl (Dilaudid Mems Engineer -) 0 mg COACH DRIVER COACH DRIVER MATTHEW PRN Reason: Protocol Stop: 06/04/17 20:47 Last Admin: 05/29/17 01:35 Dose: Not Given Cefazolin Sodium (Ancef 1gm Ivpb (Pre-Docked)) 50 mls @ 100 mls/hr IVPB Q8H-IV MATTHEW Last Admin: 05/29/17 09:13 Dose: 100 mls/hr Potassium Chloride/Dextrose/Sod Cl (D5-1/2ns+10 Meq Kcl -) 1,000 mls @ 75 mls/ hr IV ASDIR MATTHEW Last Admin: 05/29/17 08:52 Dose: 75 mls/hr Sodium Chloride (Normal Saline -) 1,000 mls @ 1,000 mls/hr IV ASDIR STA Stop: 05/29/17 12:36 Last Admin: 05/29/17 11:49 Dose: 1,000 mls/hr Metoclopramide HCl (Reglan Injection -) 10 mg IVPB Q6H PRN PRN Reason: NAUSEA AND/OR VOMITING Ondansetron HCl (Zofran Injection) 4 mg IVPUSH Q6H PRN PRN Reason: NAUSEA AND/OR VOMITING Prochlorperazine Maleate (Compazine Suppository -) 25 mg IN Q12H PRN PRN Reason: NAUSEA AND/OR VOMITING Promethazine HCl (Phenergan Injection -) 12.5 mg IVPB Q6H PRN PRN Reason: NAUSEA AND/OR VOMITING Last Admin: 05/29/17 11:08 Dose: 12.5 mg Constitutional: Yes: Awake and alert Eyes: Yes: WNL, Conjunctiva Clear, EOM Intact HENT: Yes: WNL, Atraumatic, Normocephalic Neck: Yes: WNL, Supple, Trachea Midline Cardiovascular: Yes: WNL, Regular Rate and Rhythm Respiratory: Yes: WNL, Regular, CTA Bilaterally Gastrointestinal: Yes: (+) BS ...Rectal Exam: Yes: Deferred Renal/: Yes: WNL Breast(s): Yes: Other (s/p B/l Mastectomy w/ Flap.), multiple LUDMILA drains Musculoskeletal: Yes: WNL Extremities: Yes: WNL Edema: No Peripheral Pulses WNL: Yes Integumentary: Yes: WNL Wound/Incision: Yes: Clean/Dry, Well Approximated Neurological: Yes: WNL ...Motor Strength: WNL Psychiatric: Yes: WNL Labs: Laboratory Tests 05/28/17 05/28/17 05/28/17 05:07 08:27 08:27 Urine HCG, Qual Negative Blood Type A POSITIVE A POSITIVE Antibody Screen Negative Problem List - Problems (1) Breast CA Code(s): C50.919 - MALIGNANT NEOPLASM OF UNSP SITE OF UNSPECIFIED FEMALE BREAST (2) Post-mastectomy pain Code(s): G89.18 - OTHER ACUTE POSTPROCEDURAL PAIN Assessment/Plan Breast CA -> B/L mastectomy w/ flaps Left PTX -> S/P CT insertion Tachycardia/Lactic acidosis IVF Trend Lactic acid O2 as needed VTE prophylaxis Strict I&O Continuous flap monitoring per surgery Local wound care per surgery Replete e-lytes prn Pain control Incentive Spirometry Dr Avalos
--- NOTE | 2017-05-29 12:44 | PN ---
Progress Note, Physician History of Present Illness: patient seen and examined at bedside tachycardic complains of pain flaps have good doppler signals POD #1 s/p DEIP flaps bilateral breasts had duplex US negative for DVT - Current Medication List Current Medications: Active Medications Acetaminophen (Tylenol -) 650 mg PO Q6H PRN PRN Reason: FEVER OR PAIN Last Admin: 05/29/17 09:14 Dose: 650 mg Aspirin (Asa -) 325 mg PO DAILY [facility] Last Admin: 05/29/17 09:13 Dose: 325 mg Dexamethasone Sodium Phosphate (Decadron Injection -) 4 mg IVPUSH ONCE PRN PRN Reason: NAUSEA AND/OR VOMITING Diphenhydramine HCl (Benadryl Injection -) 12.5 mg IVPUSH ONCE PRN PRN Reason: FOR ITCHING Fentanyl (Sublimaze Injection -) 50 mcg IVPUSH [id number] PRN PRN Reason: PAIN Stop: 05/31/17 20:47 Heparin Sodium (Porcine) (Heparin -) 5,000 unit SQ BID [facility] Last Admin: 05/29/17 09:13 Dose: 5,000 unit Hydromorphone HCl (Dilaudid Motor Vehicle Emissions Inspector -) 0 mg INTERNAL AUDIT SENIOR MANAGER INTERNAL AUDIT SENIOR MANAGER MATTHEW PRN Reason: Protocol Stop: 06/04/17 20:47 Last Admin: 05/29/17 01:35 Dose: Not Given Cefazolin Sodium (Ancef 1gm Ivpb (Pre-Docked)) 50 mls @ 100 mls/hr IVPB Q8H-IV [facility] Last Admin: 05/29/17 09:13 Dose: 100 mls/hr Potassium Chloride/Dextrose/Sod Cl (D5-1/2ns+10 Meq Kcl -) 1,000 mls @ 75 mls/ hr IV ASDIR [facility] Last Admin: 05/29/17 08:52 Dose: 75 mls/hr Metoclopramide HCl (Reglan Injection -) 10 mg IVPB Q6H PRN PRN Reason: NAUSEA AND/OR VOMITING Ondansetron HCl (Zofran Injection) 4 mg IVPUSH Q6H PRN PRN Reason: NAUSEA AND/OR VOMITING Prochlorperazine Maleate (Compazine Suppository -) 25 mg CA Q12H PRN PRN Reason: NAUSEA AND/OR VOMITING Promethazine HCl (Phenergan Injection -) 12.5 mg IVPB Q6H PRN PRN Reason: NAUSEA AND/OR VOMITING Last Admin: 05/29/17 11:08 Dose: 12.5 mg - Objective Vital Signs: Vital Signs Temperature 100.0 F H 05/29/17 08:48 Pulse Rate 110 H 05/29/17 12:17 Respiratory Rate 20 05/29/17 12:17 Blood Pressure 139/77 05/29/17 12:17 O2 Sat by Pulse Oximetry (%) 100 05/29/17 09:00 Constitutional: Yes: No Distress, Calm, Obese Eyes: Yes: Conjunctiva Clear HENT: Yes: Atraumatic, Normocephalic Neck: Yes: Supple, Trachea Midline Cardiovascular: Yes: Tachycardia Respiratory: Yes: Regular, CTA Bilaterally, Other (chest tube in place on left) Gastrointestinal: Yes: Soft, Other (In cision C/D/I appropriately TTP) Genitourinary: Yes: Vences Present (for I/O) Breast(s): Yes: Other (s/p DEIP reconstruction good flap perfusion with good doppler signals) Extremities: No: Calf Tenderness Edema: No Integumentary: Yes: WNL Wound/Incision: Yes: Clean/Dry, Well Approximated Neurological: Yes: Alert, Oriented Labs: CBC, BMP 05/29/17 08:10 05/29/17 08:10 INR, PTT INR 1.25 (0.82-1.09) H 05/29/17 08:10 - ....Imaging Chest X-ray: Report Reviewed, Image Reviewed Assessment/Plan 47F with history of breast Ca s/p mastectomy now with JINA flap reconstruction and left wedge resection. breast Ca s/p JINA:patient needed chest tube intra-op for lung injury continue ICU monitoring for now continue doppler monitoring of flaps advance diet pain control with INTERNAL AUDIT SENIOR MANAGER wound care per surgery continue aspirin post-op ABX ancef per surgery D/C vences later today d/c chest tube per thoracic surgery Tachycardia: likely from volume depletion tachycardia is sinus and improved with fluid resuscitation Will get DVT study to R/O DVT lactate elevated liekly from volume depletion and hypoperfusion bolus PRN continue IVF patient high risk for PE if tachycardia does not improve will need CTA chest to r/o PE Lactic acidosis: likely from volume depletion bolus fluids and recheck FEN: D5 1/2NS with potassium no electrolyte issues regular diet PPx: HSQ no GI PPx needed out of bed to chair Transfer to med/surg per surgery
--- NOTE | 2017-05-29 16:59 | PN ---
Progress Note (short form) - Note Progress Note: Thoracic Surgery: POD#1 s/p lung repair. Tube removed. CXR no ptx. Pain control per Plastics team. Can f/u with me as outpatient with CXR. Office# [phone].
[2017-05-29] MEDS ORDERED: HYDROmorphone *PCA* 10MG/50ML DISP.SYRIN PCA ONE (21:05)
[2017-05-29] MEDS: ONDANSETRON 4 MG/2 ML VIAL IVPUSH PRN (22:43)
[2017-05-30] MEDS: CEFAZOLIN (PRE-DOCKED) 50 ML IVPB SCH ×3 (01:25→16:59)
--- NOTE | 2017-05-30 08:13 | PN ---
Progress Note (short form) - Note Progress Note: Pulm/CCM SUBJECTIVE: Patient seen and examined in the ICU. 24Hr No acute events overnight -lactate down trending CT removed without residual PTX Vital Signs Temp 99.7 F H 05/30/17 06:00 Pulse 113 H 05/30/17 06:00 Resp 12 05/30/17 06:00 BP 140/59 05/30/17 06:00 Pulse Ox 100 05/29/17 21:00 Intake & Output 05/29/17 05/29/17 05/30/17 11:59 23:59 11:59 Intake Total 1250 5665 890 Output Total 775 1515 1970 Balance 475 4150 -1080 Weight 115.621 kg Intake: IV 1200 4175 600 D5-1/2Ns+10 Meq KCl - 1, 1200 300 000 ml @ 150 mls/hr IV ASDIR MATTHEW Rx#:[id number] D5-1/2Ns+10 Meq KCl - 1, 875 600 000 ml @ 75 mls/hr IV ASDIR MATTHEW Rx#:[id number] Normal Saline - 1,000 ml 2000 @ 1000 mls/hr IV ASDIR STA Rx#:[id number] Normal Saline - 1,000 ml 1000 @ 1000 mls/hr IV ASDIR STA Rx#:[id number] IVPB 50 170 50 Oral 0 1320 240 Output: Drainage 275 1015 470 #3 Left Abdomen 135 180 120 Left Upper Chest 45 #1 Right Breast 40 110 40 #2 Right Abdomen 25 95 30 #4 Left Breast 30 85 45 Left Lateral Chest 95 45 Right Lateral Chest 35 40 Right Lateral Abdomen 100 Left Chest 0 Right Lower Abdomen 105 30 Left Lower Abdomen 210 120 Urine 187 272 9282 Garcia [id number] Void 0 0 Other: Voiding Method Indwelling Catheter Bedpan Bowel Movement No No No Weight Measurement Method Built in [facility] Active Medications Acetaminophen (Tylenol -) 650 mg PO Q6H PRN PRN Reason: FEVER OR PAIN Last Admin: 05/29/17 09:14 Dose: 650 mg Aspirin (Asa -) 325 mg PO DAILY [facility] Last Admin: 05/29/17 09:13 Dose: 325 mg Dexamethasone Sodium Phosphate (Decadron Injection -) 4 mg IVPUSH ONCE PRN PRN Reason: NAUSEA AND/OR VOMITING Diphenhydramine HCl (Benadryl Injection -) 12.5 mg IVPUSH ONCE PRN PRN Reason: FOR ITCHING Fentanyl (Sublimaze Injection -) 50 mcg IVPUSH [id number] PRN PRN Reason: PAIN Stop: 05/31/17 20:47 Heparin Sodium (Porcine) (Heparin -) 5,000 unit SQ BID MATTHEW Last Admin: 05/29/17 09:13 Dose: 5,000 unit Hydromorphone HCl (Dilaudid Early Intervention Specialist -) 0 mg CARGO SERVICE AGENT CARGO SERVICE AGENT MATTHEW PRN Reason: Protocol Stop: 06/04/17 20:47 Last Admin: 05/29/17 01:35 Dose: Not Given Cefazolin Sodium (Ancef 1gm Ivpb (Pre-Docked)) 50 mls @ 100 mls/hr IVPB Q8H-IV MATTHEW Last Admin: 05/29/17 09:13 Dose: 100 mls/hr Potassium Chloride/Dextrose/Sod Cl (D5-1/2ns+10 Meq Kcl -) 1,000 mls @ 75 mls/ hr IV ASDIR MATTHEW Last Admin: 05/29/17 08:52 Dose: 75 mls/hr Sodium Chloride (Normal Saline -) 1,000 mls @ 1,000 mls/hr IV ASDIR STA Stop: 05/29/17 12:36 Last Admin: 05/29/17 11:49 Dose: 1,000 mls/hr Metoclopramide HCl (Reglan Injection -) 10 mg IVPB Q6H PRN PRN Reason: NAUSEA AND/OR VOMITING Ondansetron HCl (Zofran Injection) 4 mg IVPUSH Q6H PRN PRN Reason: NAUSEA AND/OR VOMITING Prochlorperazine Maleate (Compazine Suppository -) 25 mg DC Q12H PRN PRN Reason: NAUSEA AND/OR VOMITING Promethazine HCl (Phenergan Injection -) 12.5 mg IVPB Q6H PRN PRN Reason: NAUSEA AND/OR VOMITING Last Admin: 05/29/17 11:08 Dose: 12.5 mg Constitutional: Yes: Awake and alert Eyes: Yes: WNL, Conjunctiva Clear, EOM Intact HENT: Yes: WNL, Atraumatic, Normocephalic Neck: Yes: WNL, Supple, Trachea Midline Cardiovascular: Yes: WNL, Regular Rate and Rhythm Respiratory: Yes: WNL, Regular, CTA Bilaterally Gastrointestinal: Yes: (+) BS ...Rectal Exam: Yes: Deferred Renal/: Yes: WNL Breast(s): Yes: Other (s/p B/l Mastectomy w/ Flap.), multiple LUDMILA drains Musculoskeletal: Yes: WNL Extremities: Yes: WNL Edema: No Peripheral Pulses WNL: Yes Integumentary: Yes: WNL Wound/Incision: Yes: Clean/Dry, Well Approximated Neurological: Yes: WNL ...Motor Strength: WNL Psychiatric: Yes: WNL Labs: CBC, BMP 05/29/17 08:10 05/29/17 08:10 Problem List - Problems (1) Breast CA Code(s): C50.919 - MALIGNANT NEOPLASM OF UNSP SITE OF UNSPECIFIED FEMALE BREAST (2) Post-mastectomy pain Code(s): G89.18 - OTHER ACUTE POSTPROCEDURAL PAIN Assessment/Plan Breast CA -> B/L mastectomy w/ flaps Left PTX -> S/P CT insertion Tachycardia/Lactic acidosis IVF O2 as needed VTE prophylaxis Strict I&O Continuous flap monitoring per surgery Local wound care per surgery Replete miguelangel-lymike prn Pain control Incentive Spirometry Tx to med surg Scott Solorzano ACNP [address]
[2017-05-30] MEDS: HEPARIN NA (PORCINE) 5,000 UNITS/ML 1ML VIAL SQ SCH (10:00)
--- NOTE | 2017-05-30 11:57 | PN ---
Progress Note (short form) - Note Progress Note: POD 2, flaps viable Patient remains tachycardic. UOP 1200 overnight. fluid status is adequate and I expect further duiresis today. She states that she is having pain and that is likely the source of her tachycardia. BP is 167/68 Duplex negative for DVT, OOB ambulating. Poor effort on incentive spirometry, instructed to improve. CT out and no PTX Plan ICU consult for tachycardia. Repeat Trial of void today. OK to transfer to floor once tachycardia resolved.
[2017-05-30] MEDS ORDERED: SODIUM CHLORIDE 0.9% 1000 ML INFUS.BAG IV ONE (12:05)
[2017-05-30 13:04] LABS: MCH 25.2 pg (25.7-33.7); MEAN CELL VOLUME 78.7 fl (80-96); MEAN PLT VOLUME 7.8 fl (7.5-11.1); PLATELET COUNT 228 K/MM3 (134-434); WHITE BLOOD COUNT 7.7 K/mm3 (4.0-10.0)
[2017-05-30] MEDS: ASPIRIN 325 MG TABLET PO SCH (14:12)
--- NOTE | 2017-05-30 15:04 | PN ---
Progress Note (short form) - Note Progress Note: Returned to re-examine patient on account of news of decreased hematocrit. All but the left breast drain are thin serous fluid. the left breast is bloodier, but not willian blood. Including what I just expressed the output is 245 over the past 24 hours. The drain is functioning. Breast is soft, not tense, not noticeably larger than in the OR. Color is without echymosis, flow signals are good, tissues are viable. Will hold heparin and ASA. Plan is for transfusion PRBC. As long as drain is functioning well I will observe for now. Continue to monitor in the ICU and measure repeat HCT and UOP.
--- NOTE | 2017-05-30 19:15 | PN ---
Progress Note (short form) - Note Progress Note: PATIENT SEEN AT BEDSIDE, EVALUATION FOR PAIN CONTROL. PATIENT SAID PAIN IS A 5/ 10 WHILE AT REST AND A 10/10 WHILE MOVING THOUGH SHE HAS NOT MAXED OUT ON PORTAL ADMINISTRATOR DEMANDS. I ADVISED HER TO USE THE PORTAL ADMINISTRATOR MORE LIBERALLY TO CONTROL HER PAIN BETTER. SHE WAS TACHYCARDIC BUT WAS FOUND TO BE ANEMIC. BLOOD TRANSFUSION PER SURGICAL TEAM. WILL CONSIDER ADDING VALIUM TO PAIN REGIMEN IF PAIN REMAINS UNCONTROLLED BUT FOR NOW THE PATIENT PREFERS TO REMAIN ONLY ON PORTAL ADMINISTRATOR.
[2017-05-30] MEDS ORDERED: LABETALOL HCL 5 MG/1 ML (100MG/20 ML VIAL) IVPUSH ONE (20:54)
[2017-05-31 01:31] LABS: BASOPHIL 0.3 % (0-2.0); EOSINOPHIL 0.1 % (0-4.5); MCH 27.3 pg (25.7-33.7); MCHC 33.4 g/dl (32.0-36.0); MEAN CELL VOLUME 81.7 fl (80-96); MEAN PLT VOLUME 8.6 fl (7.5-11.1); PLATELET COUNT 238 K/MM3 (134-434); RDW 17.5 % (11.6-15.6); WHITE BLOOD COUNT 10.3 K/mm3 (4.0-10.0)
[2017-05-31] MEDS: CEFAZOLIN (PRE-DOCKED) 50 ML IVPB SCH ×3 (01:44→17:01)
[2017-05-31] MEDS: D5-1/2NS+10 MEQ KCL - 1,000 ML IV SCH (06:27)
[2017-05-31 06:35] LABS: BASOPHIL 0.4 % (0-2.0); EOSINOPHIL 0.5 % (0-4.5); MCH 27.4 pg (25.7-33.7); MCHC 33.6 g/dl (32.0-36.0); MEAN CELL VOLUME 81.5 fl (80-96); MEAN PLT VOLUME 8.6 fl (7.5-11.1); NEUTROPHILS 67.9 % (42.8-82.8); PLATELET COUNT 225 K/MM3 (134-434); RDW 16.9 % (11.6-15.6); WHITE BLOOD COUNT 10.7 K/mm3 (4.0-10.0)
--- NOTE | 2017-05-31 07:04 | PN ---
Progress Note (short form) - Note Progress Note: PULMONARY/CRITICAL CARE FOLLOW UP: Progress Note: Pulm/CCM SUBJECTIVE: Patient seen and examined in the ICU. 24 HOUR EVENTS: -Hgd dropped to 6.5 yesterday --> 9.0 with 2 PRBCs, now 8.4 this morning; no obvious source from drains, ?Left Hemothorax - CXR has worsening retrocardiac opacity, could also be atelectasis or PNA; bedside u/s shows b/l effusions, ? consolidated lung on L -Low grade fevers continue with increasing WBC - cultured, held off on expanding abx for now -Lactate cleared -OOB to chair this morning -Surgery considering taking back to OR today Current Medications Acetaminophen (Tylenol -) 650 mg PO Q6H PRN PRN Reason: FEVER OR PAIN Last Admin: 05/29/17 09:14 Dose: 650 mg Dexamethasone Sodium Phosphate (Decadron Injection -) 4 mg IVPUSH ONCE PRN PRN Reason: NAUSEA AND/OR VOMITING Diphenhydramine HCl (Benadryl Injection -) 12.5 mg IVPUSH ONCE PRN PRN Reason: FOR ITCHING Fentanyl (Sublimaze Injection -) 50 mcg IVPUSH [id number] PRN PRN Reason: PAIN Stop: 05/31/17 20:47 Hydromorphone HCl (Dilaudid Tube Test Technician -) 0 mg MUSIC THEORY PROFESSOR MUSIC THEORY PROFESSOR MATTHEW PRN Reason: Protocol Stop: 06/04/17 20:47 Last Admin: 05/29/17 21:05 Dose: 0.2 mg Cefazolin Sodium (Ancef 1gm Ivpb (Pre-Docked)) 50 mls @ 100 mls/hr IVPB Q8H-IV MATTHEW Last Admin: 05/31/17 01:44 Dose: 100 mls/hr Potassium Chloride/Dextrose/Sod Cl (D5-1/2ns+10 Meq Kcl -) 1,000 mls @ 75 mls/ hr IV ASDIR MATTHEW Last Admin: 05/31/17 06:27 Dose: Not Given Metoclopramide HCl (Reglan Injection -) 10 mg IVPB Q6H PRN PRN Reason: NAUSEA AND/OR VOMITING Ondansetron HCl (Zofran Injection) 4 mg IVPUSH Q6H PRN PRN Reason: NAUSEA AND/OR VOMITING Last Admin: 05/29/17 22:43 Dose: 4 mg Prochlorperazine Maleate (Compazine Suppository -) 25 mg SC Q12H PRN PRN Reason: NAUSEA AND/OR VOMITING Promethazine HCl (Phenergan Injection -) 12.5 mg IVPB Q6H PRN PRN Reason: NAUSEA AND/OR VOMITING Last Admin: 05/29/17 11:08 Dose: 12.5 mg Vital Signs Temp 98.7 F 05/31/17 06:00 Pulse 103 H 05/31/17 06:00 Resp 21 05/31/17 06:00 BP 156/87 05/31/17 06:00 Pulse Ox 100 05/30/17 09:00 Intake & Output 05/30/17 05/30/17 05/31/17 06:59 18:59 06:59 Intake Total 1750 2100 1175 Output Total 2725 1145 1315 Balance -975 955 -140 Weight 115.621 kg 116.074 kg Intake: IV 900 1600 375 D5-1/2Ns+10 Meq KCl - 1, 900 600 375 000 ml @ 75 mls/hr IV ASDIR [facility] Rx#:[id number] saline lock 1000 IVPB 70 100 50 Oral 780 400 50 Packed Cells 700 Output: Drainage 1225 345 515 #3 Left Abdomen 200 110 210 #1 Right Breast 75 75 90 #2 Right Abdomen 70 50 185 #4 Left Breast 100 110 30 Left Lateral Chest 140 Right Lateral Chest 75 Right Lateral Abdomen 100 Right Lower Abdomen 135 Left Lower Abdomen 330 Urine 1500 800 800 Garcia 1500 800 800 Void 0 Other: Voiding Method Bedpan Bedpan Indwelling Catheter Bowel Movement No No Weight Measurement Method Built in [facility] Constitutional: Awake and alert Eyes: Yes: WNL, Conjunctiva Clear, EOM Intact HENT: Yes: WNL, Atraumatic, Normocephalic Neck: Yes: WNL, Supple, Trachea Midline Cardiovascular: Yes: WNL, Regular Rate and Rhythm Respiratory: diminished bases, clear apex Gastrointestinal: Yes: (+) BS, soft, non-tender Breast(s): Yes: Other (s/p B/l Mastectomy w/ Flap.), multiple LUDMILA drains with serous drainage Musculoskeletal: Yes: WNL Extremities: Yes: WNL Edema: No Peripheral Pulses WNL: Yes Integumentary: hot, moist Wound/Incision: Yes: Clean/Dry, Well Approximated Neurological: Yes: WNL ...Motor Strength: WNL Psychiatric: Yes: WNL Labs: CBC, BMP 05/31/17 05:15 Problem List - Problems (1) Breast CA Code(s): C50.919 - MALIGNANT NEOPLASM OF UNSP SITE OF UNSPECIFIED FEMALE BREAST (2) Post-mastectomy pain Code(s): G89.18 - OTHER ACUTE POSTPROCEDURAL PAIN Assessment/Plan Breast CA -> B/L mastectomy w/ flaps Left PTX -> S/P CT removal Resolved Lactic acidosis Chronic anemia Post-op anemia, ?blood loss of unclear source - ?Left hemothorax ?new sepsis - fevers, leukocytosis -Serial CBC, coags -Repeat CXR today and consider chest CT to identify source of blood loss -Surgery considering taking back to OR -Continuous flap monitoring -Follow up cultures and consider emperic abx - would do Vanc/Zosyn -Oxygen as needed -Incentive Spirometry and OOB to chair -Pain management Continue ICU monitoring Sudarshan Covarrubias Pulm/Critical Care CONFECTIONERY MAKER [address]
[2017-05-31 07:08] LABS: CALCIUM 7.8 mg/dL (8.5-10.1)
[2017-05-31 07:11] LABS: ANION GAP 6 (8-16); CO2 29 mmol/L (21-32); CREATININE 0.5 mg/dL (0.55-1.02); GLUCOSE,RANDOM 133 mg/dL (74-106); MAGNESIUM 2.2 mg/dL (1.8-2.4)
--- NOTE | 2017-05-31 14:27 | PN ---
Progress Note (short form) - Note Progress Note: Tachycardai much improved, VSS AF LUDMILA output is low to minimal. Quality of output on the left breast is red but thinner than yesterday. Hb 8.5 this morning compared with 9.0 post transfusion. Breasts are soft without any noticeable increase in size. Still with very poor use if incentive spirometer UOP is 90's per hour. Patient is out of bed ambulating Heparin and ASA off Will recheck CBC this evening, if stable will transfer to floor. If not will consider CT chest.
[2017-05-31] MEDS ORDERED: SIMETHICONE 80 MG TAB.CHEW (FP) PO PRN (14:29)
--- NOTE | 2017-05-31 15:32 | PN ---
Progress Note (short form) - Note Progress Note: ANESTHESIOLOGY Pt now POD #3 s/p B/L JINA flap on hydromorphone TUNGSTEN TENDER. Pain 4-5/10 at rest, 9/ 10 when OOB. Pain controlled with TUNGSTEN TENDER. Tolerating diet today. Spoke with patient regarding D/C of TUNGSTEN TENDER and wishes to maintain for tonight. Likely D/C in am and switch to PO analgesics. Will follow.
[2017-05-31 18:14] LABS: MCH 27.1 pg (25.7-33.7); MCHC 32.7 g/dl (32.0-36.0); MEAN CELL VOLUME 82.7 fl (80-96); RDW 17.6 % (11.6-15.6); WHITE BLOOD COUNT 13.4 K/mm3 (4.0-10.0)
[2017-05-31 19:05] LABS: MEAN PLT VOLUME 9.1 fl (7.5-11.1); PLATELET COMMENT2 NO CLUMPING NOTED; PLATELET COMMENT3 FEW LARGE PLTS; PLATELET COUNT 280 K/MM3 (134-434); PLATELET ESTIMATE ADEQUATE (NORMAL)
[2017-05-31] MEDS: HYDROmorphone *PCA* 10MG/50ML DISP.SYRIN PCA SCH (19:25)
[2017-05-31] MEDS ORDERED: morphine CARPU-JECT 2 MG/1 ML DISP.SYRIN IVPUSH PRN (19:48)
[2017-05-31 20:04] LABS: URINE APPEARANCE CLEAR; URINE BILIRUBIN NEGATIVE (NEGATIVE); URINE BLOOD 2+ (NEGATIVE); URINE COLOR LTYELLOW; URINE GLUCOSE (UA) NEGATIVE (NEGATIVE); URINE KETONE NEGATIVE (NEGATIVE); URINE LEUK ESTERASE NEGATIVE (NEGATIVE); URINE NITRITE NEGATIVE (NEGATIVE)
[2017-05-31 20:06] LABS: URINE PROTEIN 1+ (NEGATIVE)
[2017-05-31 20:07] LABS: URINE MUCUS RARE; URINE RBC 14 /hpf (0-3); URINE WBC 5 /hpf (3-5)
[2017-05-31] MEDS ORDERED: PT OWN MED DRAWER 7, Y5N ONE (20:09)
[2017-05-31] MEDS: oxyCODONE HCL 5 MG TABLET PO PRN (20:10)
[2017-05-31] MEDS: ACETAMINOPHEN 325 MG TABLET (FP) PO PRN (20:12)
[2017-05-31] MEDS: PIPERACILLIN/TAZOB 4.5 GM/100 ML PRE-DOCKED IVPB SCH (20:13)
[2017-06-01] MEDS: ACETAMINOPHEN 325 MG TABLET (FP) PO PRN ×2 (00:52→09:08)
[2017-06-01] MEDS: oxyCODONE HCL 5 MG TABLET PO PRN ×2 (00:52→08:38)
[2017-06-01] MEDS: PIPERACILLIN/TAZOB 4.5 GM/100 ML PRE-DOCKED IVPB SCH (02:39)
[2017-06-01 06:46] LABS: MCH 27.7 pg (25.7-33.7); MCHC 34.4 g/dl (32.0-36.0); MEAN CELL VOLUME 80.4 fl (80-96); MEAN PLT VOLUME 8.8 fl (7.5-11.1); PLATELET COUNT 319 K/MM3 (134-434); RDW 17.4 % (11.6-15.6); WHITE BLOOD COUNT 9.5 K/mm3 (4.0-10.0)
[2017-06-01 06:55] LABS: INR 1.11 (0.82-1.09); PROTHROMBIN TIME (PATIENT) 12.2 SEC (9.98-11.88)
[2017-06-01 06:57] LABS: ANION GAP 8 (8-16); CO2 29 mmol/L (21-32); CREATININE 0.5 mg/dL (0.55-1.02); GLUCOSE,RANDOM 131 mg/dL (74-106); MAGNESIUM 2.4 mg/dL (1.8-2.4); PHOSPHOROUS 2.5 mg/dL (2.5-4.9)
--- NOTE | 2017-06-01 07:15 | PN ---
Progress Note, Physician Chief Complaint: ID Full note dictated Bilateral mastectomy 05/29. Currently with SOB and overnight fever [address] Cárdenas started Pip Tazobactam She denies chills couph abd pain. She did have a catheter for urinary retention placed removed and reinserted and removed. Currently afebrile HIV status negative year ago Had chest tube post op now removed - Current Medication List Current Medications: Active Medications Acetaminophen (Tylenol -) 650 mg PO Q6H PRN PRN Reason: FEVER OR PAIN Last Admin: 05/29/17 09:14 Dose: 650 mg Acetaminophen (Tylenol -) 325 mg PO Q4H PRN PRN Reason: PAIN Stop: 06/03/17 19:44 Last Admin: 06/01/17 00:52 Dose: 325 mg Dexamethasone Sodium Phosphate (Decadron Injection -) 4 mg IVPUSH ONCE PRN PRN Reason: NAUSEA AND/OR VOMITING Diphenhydramine HCl (Benadryl Injection -) 12.5 mg IVPUSH ONCE PRN PRN Reason: FOR ITCHING Ferrous Sulfate (Feosol -) 325 mg PO DAILY MATTHEW Metoclopramide HCl (Reglan Injection -) 10 mg IVPB Q6H PRN PRN Reason: NAUSEA AND/OR VOMITING Morphine Sulfate (Morphine Injection -) 2 mg IVPUSH Q6H PRN PRN Reason: PAIN Ondansetron HCl (Zofran Injection) 4 mg IVPUSH Q6H PRN PRN Reason: NAUSEA AND/OR VOMITING Last Admin: 05/29/17 22:43 Dose: 4 mg Oxycodone HCl (Roxicodone -) 5 mg PO Q4H PRN PRN Reason: PAIN Last Admin: 06/01/17 00:52 Dose: 5 mg Piperacillin Sod/Tazobactam Sod (Zosyn 4.5gm Ivpb (Pre-Docked)) 4.5 gm IVPB Q6H -IV MATTHEW Piperacillin Sod/Tazobactam Sod (Zosyn 4.5gm Ivpb (Pre-Docked)) 4.5 gm IVPB Q6H MATTHEW Stop: 06/01/17 08:01 Last Admin: 06/01/17 02:39 Dose: 4.5 gm Prochlorperazine Maleate (Compazine Suppository -) 25 mg [place] Q12H PRN PRN Reason: NAUSEA AND/OR VOMITING Promethazine HCl (Phenergan Injection -) 12.5 mg IVPB Q6H PRN PRN Reason: NAUSEA AND/OR VOMITING Last Admin: 05/29/17 11:08 Dose: 12.5 mg Simethicone (Mylicon -) 80 mg PO Q6H PRN PRN Reason: GAS Last Admin: 05/31/17 17:01 Dose: 80 mg - Objective Vital Signs: Vital Signs Temperature 98 F 06/01/17 06:00 Pulse Rate 100 H 06/01/17 06:00 Respiratory Rate 14 06/01/17 06:00 Blood Pressure 169/107 06/01/17 06:00 O2 Sat by Pulse Oximetry (%) 100 05/30/17 09:00 Constitutional: Yes: Well Nourished, No Distress Neck: Yes: WNL, Supple Cardiovascular: Yes: Regular Rate and Rhythm, S1, S2. No: Murmur Respiratory: Yes: WNL, Regular, CTA Bilaterally, Diminished, Other (Few rales bases) Gastrointestinal: Yes: Soft. No: Tenderness, Rebound Edema: No Labs: INR, PTT INR 1.25 (0.82-1.09) H 05/29/17 08:10 Problem List - Problems (1) Breast CA Code(s): C50.919 - MALIGNANT NEOPLASM OF UNSP SITE OF UNSPECIFIED FEMALE BREAST (2) S/P bilateral mastectomy Code(s): Z90.13 - ACQUIRED ABSENCE OF BILATERAL BREASTS AND NIPPLES (3) Fever Code(s): R50.9 - FEVER, UNSPECIFIED Assessment/Plan Microbiology 05/30/17 22:00 Sputum - Expectorated Gram Stain - Final 05/31/17 01:00 Blood - Peripheral Venous Blood Culture - Preliminary NO GROWTH OBTAINED AFTER 24 HOURS, INCUBATION TO CONTINUE FOR 4 DAYS. 05/31/17 01:00 Blood - Peripheral Venous Blood Culture - Preliminary NO GROWTH OBTAINED AFTER 24 HOURS, INCUBATION TO CONTINUE FOR 4 DAYS. Laboratory Tests 05/29/17 05/29/17 05/31/17 08:10 08:10 05:15 WBC Hgb Hct Plt Count INR BUN 5 L D Creatinine 0.5 L D Lactic Acid 3.7 H* Total Bilirubin 0.3 D ALT 22 Urine RBC Urine WBC 05/31/17 05/31/17 06/01/17 18:00 19:00 05:15 WBC 13.4 H 9.5 Hgb 8.9 L Hct 25.9 L Plt Count 319 INR BUN Creatinine Lactic Acid Total Bilirubin ALT Urine RBC 14 Urine WBC 5 06/01/17 05:15 WBC Hgb Hct Plt Count INR Pending BUN Creatinine Lactic Acid Total Bilirubin ALT Urine RBC Urine WBC Assessment 47 year old bilateral mastectomy 05/28 cource complicated by SOB small pneumothorax anemia Urinary retension elevated lactic acid. Now febrile 101 with multiple possible sources atalectasis UTI Chest wall drains. Currently afebrile and not "toxic " appearing but is SOB. Basically source of fever unclear but very reasonable to cover as per Dr Cárdenas with Zosyn pending repeat cultures. Further antibiotic guidance to be forthcoming 24-[address] scan contrast. Ron NEGRON
--- NOTE | 2017-06-01 07:55 | PN ---
Progress Note (short form) - Note Progress Note: Patient stable over night. Transfer to floor was held on account of fever and increased WBC. HCT stable since transfusion. LUDMILA output is now serosanguinous, but much thinner over last 48 hours. She is oob ambulating. She makes a very poor inspiratory efort and because of her risk for pneumonia, she was started on zosyn last night. ID consult appreciated, recommending chest CT. Exam: flaps bilaterally viable with good color, warmth,and flow signals. No pressure or tension on either flap, no clinical evidence of surgically significant hematoma. Abdomen soft and non-tender, LUDMILA's thin serous fluid. CT chest, plan to transfer to floor if normal. ID to help manage.
--- NOTE | 2017-06-01 08:37 | PN ---
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 Pt. doing well, sitting in chair. She does c/o pain, however this is relieved by PO meds. CORRECTIONS IDENTIFICATION TECHNICIAN was turned off yesterday evening by primary service. Otherwise, VSS. Continue current pain regimen.
--- NOTE | 2017-06-01 08:42 | CONS ---
DATE OF CONSULTATION: DATE OF DICTATION: 06/01/2017 This is a 47-year-old female recently status post bilateral mastectomy for breast cancer I am asked to see in the ICU for shortness of breath and fever to 101. She was initially admitted electively for bilateral mastectomy. She underwent surgery with flaps on May [address] Cárdenas. She came from the operating room with bilateral chest drains, and her course was subsequently complicated by small pneumothorax for which a chest tube had to be transiently inserted but quickly removed. She has recently been noted to be tachypneic, and in reviewing her CBC on May 30, her hemoglobin dropped to 6.5 and her hematocrit to 20. She was apparently transfused packed red blood cells at that time. Last night she developed fever to 101. She denied any chills or cough, abdominal pain, or urinary complaints. She was seen by Dr. Avalos on May 29, noting that she at that time was tachycardic with an elevated lactic acid level. She had no fever, however, at that time. She notes that a Garcia catheter had been placed and removed, but because of urinary retention had to be reinserted, but once again has now been removed. She has no history of recent travel and notes that she is HIV negative in the past. 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 PAST MEDICAL HISTORY: Includes breast cancer. CURRENT MEDICATIONS: 1. Zofran. 2. Zosyn. 3. Iron. 4. Roxicodone. ALLERGIES: None known. SOCIAL HISTORY: Nonsmoker. No history of substance abuse. FAMILY HISTORY: Reviewed and noncontributory. REVIEW OF SYSTEMS: Respiratory: Tachypnea. No pleuritic chest pain. Gastrointestinal: No abdominal pain, nausea, vomiting, diarrhea. Cardiac: No palpitations, syncope, history of murmur. Genitourinary: Denies dysuria, hematuria, urinary frequency. PHYSICAL EXAMINATION: General: She was an alert female sitting in a chair in no acute distress. Vital Signs: Temperature presently 98, pulse 100, blood pressure 169/107, respirations 14. Neck: Supple, without adenopathy. Lungs: Diminished breath sounds with few rales at both bases. Heart: S1, S2, regular rhythm with no audible murmur. Tachycardic. Abdomen: Soft, nontender. Positive bowel sounds. Surgical incision. Extremities: No clubbing, cyanosis, or edema. Chest: Reveals 2 drains on either side. LABORATORY: White count 9.5, yesterday 13.4. Hemoglobin 8.9, hematocrit 26, platelets 319. BUN 9, creatinine 0.8. Lactic acid 1.3. Urinalysis with 14 RBCs, 5 WBCs. Blood cultures dated May 31 thus far no growth. Urine culture May 30 pending. Repeat cultures May 31 pending. ASSESSMENT: A 47-year-old female status post bilateral mastectomies May 28. Course complicated by small pneumothorax requiring temporary chest tube, anemia, elevated lactic acid level, and now fever. Multiple possible causes include urinary tract infection, atelectasis, and of course recent surgery with bilateral chest drains. The possibility of pneumonia is also considered. As she appears to be stable at this time, I would continue with piperacillin/tazobactam as ordered by Dr. Cárdenas, 4.5 g every 8 hours, await repeat cultures with further antibiotic guidance to be forthcoming in the next 24-48 hours. Consideration of a chest CT with contrast but will defer this to Dr. Avalos who will see the patient later this morning. KWAME SHEPARD M.D. [facility]/[id number]
[2017-06-01] MEDS ORDERED: PIPERACILLIN/TAZOB 4.5 GM/100 ML PRE-DOCKED IVPB SCH (09:00)
[2017-06-01] MEDS: FERROUS SO4 325 MG TABLET (FP) PO SCH (09:57)
[2017-06-01] MEDS: PIPERACILLIN/TAZOB 4.5 GM 100 ML IVPB SCH ×2 (09:57→17:51)
[2017-06-01] MEDS: PROMETHAZINE HCL 25 MG/1 ML VIAL IVPB PRN (10:30)
[2017-06-01] MEDS ORDERED: HYDROmorphone HCL CARPU-JECT 1 MG/1 ML DISP.SYRIN IVPB ONE (11:14)
[2017-06-01] MEDS: ONDANSETRON 4 MG/2 ML VIAL IVPUSH PRN (11:22)
--- NOTE | 2017-06-01 14:59 | SURG ---
[facility] Docent Note [facility] Docent: Nga Charles PA-C Date of Service: 06/18/17 Diagnosis: Right breast cancer and left acquired absence of breast Procedure: PROCEDURE PERFORMED: 1. Bilateral breast reconstruction with JINA (deep inferior epigastric perforators) flap. 2. Bilateral rib resection. 3. Bilateral ligation of SIEV (superficial inferior epigastric vein). 4. Bilateral transversus abdominis plane block for postoperative pain relief. I was present from 1800 until 1999 t assist with the closure of the abdomen Visit type - Case Type Case Type: Elective Cosmetic Proced - Emergency Emergency Visit: No - New patient This patient is new to me today: Yes Date on this admission: 06/01/17 - Critical Care Critical Care patient: No
--- NOTE | 2017-06-01 16:15 | PN ---
Physical Exam: SUBJECTIVE: Patient seen and examined at bed side this morning. Feels much better. But still has pain while lying flat and on movement. Complaints of nausea but no vomiting. no acute events overnight. OBJECTIVE: Vital Signs Period Temp Pulse Resp BP Sys/Leiva Pulse Ox Last 24 Hr 98 F-101 F 88-120 14-28 104-182/65-112 89-98 GENERAL: Young female, sitting comfortably in a chair, awake, alert, and fully oriented, in no acute distress. HEAD: Normal with no signs of trauma. EYES: EOM intact, no pallor or icterus. ENT: Ears normal, moist mucous membranes. NECK: Supple. LUNGS: Breath sounds equal, clear to auscultation bilaterally, no wheezes, no crackles, no accessory muscle use. HEART: Tachycardic, Regular rate and rhythm, S1, S2 without murmur, rub or gallop. BREAST: no erythema, no drainage from the surgical site, tender to palpation, 4 drains in total, 2 on both sides. ABDOMEN: Soft, nontender, nondistended, normoactive bowel sounds, no guarding, no rebound, no hepatosplenomegaly, no masses. EXTREMITIES: 2+ pulses, warm, well-perfused, no edema. NEUROLOGICAL: No facial droop, Cranial nerves II through XII grossly intact. Normal speech, gait not observed. PSYCH: Normal mood, normal affect. SKIN: Warm, dry, normal turgor, no rashes or lesions noted Laboratory Results - last 24 hr 05/31/17 05/31/17 06/01/17 18:00 19:00 05:15 WBC 13.4 H 9.5 RBC 3.62 3.22 L Hgb 9.8 L D 8.9 L Hct 30.0 L D 25.9 L MCV 82.7 80.4 MCH 27.1 27.7 MCHC 32.7 34.4 RDW 17.6 H 17.4 H Plt Count 280 D 319 MPV 9.1 8.8 Differential Comment Slide scanned Platelet Estimate Adequate Platelet Comment No clumping noted INR Sodium Potassium Chloride Carbon Dioxide Anion Gap BUN Creatinine Random Glucose Calcium Phosphorus Magnesium Urine Color Ltyellow Urine Appearance Clear Urine pH 7.0 Ur Specific [place] 1.015 Urine Protein 1+ H Urine Glucose (UA) Negative Urine Ketones Negative Urine Blood 2+ H Urine Nitrite Negative Urine Bilirubin Negative Urine Urobilinogen 2.0 H Ur Leukocyte Esterase Negative Urine RBC 14 Urine WBC 5 Urine Mucus Rare 06/01/17 06/01/17 05:15 05:15 WBC RBC Hgb Hct MCV MCH MCHC RDW Plt Count MPV Differential Comment Platelet Estimate Platelet Comment INR 1.11 Sodium 139 Potassium 3.4 L Chloride 102 Carbon Dioxide 29 Anion Gap 8 BUN 5 L Creatinine 0.5 L Random Glucose 131 H Calcium 8.0 L Phosphorus 2.5 D Magnesium 2.4 Urine Color Urine Appearance Urine pH Ur Specific [place] Urine Protein Urine Glucose (UA) Urine Ketones Urine Blood Urine Nitrite Urine Bilirubin Urine Urobilinogen Ur Leukocyte Esterase Urine RBC Urine WBC Urine Mucus Active Medications Generic Name Dose Route Start Last Admin Trade Name Freq PRN Reason Stop Dose Admin Acetaminophen 650 mg 05/29/17 08:49 05/29/17 09:14 Tylenol - PO 650 mg Q6H PRN Administration FEVER OR PAIN Acetaminophen 325 mg 05/31/17 19:45 06/01/17 09:08 Tylenol - PO 06/03/17 19:44 325 mg Q4H PRN Administration PAIN Dexamethasone Sodium Phosphate 4 mg 05/28/17 20:46 Decadron Injection - IVPUSH ONCE PRN NAUSEA AND/OR VOMITING Diphenhydramine HCl 12.5 mg 05/28/17 20:46 Benadryl Injection - IVPUSH ONCE PRN FOR ITCHING Ferrous Sulfate 325 mg 06/01/17 10:00 06/01/17 09:57 Feosol - PO 325 mg DAILY MATTHEW Administration Heparin Sodium (Porcine) 5,000 unit 06/01/17 22:00 Heparin - SQ BID MATTHEW Piperacillin Sod/Tazobactam Sod 100 mls @ 200 mls/hr 06/01/17 10:00 06/01/17 09 :57 Zosyn 4.5gm Ivpb (Pre-Docked) IVPB 200 mls/hr Q8H-IV MATTHEW Administration Protocol Metoclopramide HCl 10 mg 05/28/17 20:48 Reglan Injection - IVPB Q6H PRN NAUSEA AND/OR VOMITING Morphine Sulfate 2 mg 05/31/17 19:48 Morphine Injection - IVPUSH Q6H PRN PAIN Ondansetron HCl 4 mg 05/28/17 20:48 06/01/17 11:22 Zofran Injection IVPUSH 4 mg Q6H PRN Administration NAUSEA AND/OR VOMITING Oxycodone HCl 5 mg 05/31/17 19:45 06/01/17 08:38 Roxicodone - PO 5 mg Q4H PRN Administration PAIN Prochlorperazine Maleate 25 mg 05/28/17 20:48 Compazine Suppository - [place] Q12H PRN NAUSEA AND/OR VOMITING Promethazine HCl 12.5 mg 05/28/17 20:46 06/01/17 10:30 Phenergan Injection - IVPB 12.5 mg Q6H PRN Administration NAUSEA AND/OR VOMITING Simethicone 80 mg 05/31/17 14:29 05/31/17 17:01 Mylicon - PO 80 mg Q6H PRN Administration GAS ASSESSMENT/PLAN: Patient is a 47 year old female, with history of breast Ca s/p mastectomy now with JINA flap reconstruction and left wedge resection. # Breast Ca s/p JINA POD Day 4 Doing much better Pain controlled with Oxycodone One dose of Dilaudid 0.5mg ordered for breakthrough pain. # Sepsis Questionable pneumonia , has atelectasis Leukocytosis improved, afebrile this morning Continue IV Zosyn CXR to be repeated tomorrow CT chest with contrast cancelled, as pt is unable to lay flat completely due to pain. If her breathing worsens, cxr looks worse tomorrow then would consider CT chest. On ambulation, saturation was around 89 % but 99 % saturation at rest. # FEN Not on IV fluids, tolerating PO well. electrolytes to be repeated tomorrow Soft diet # Prophylaxis For DVT: On Heparin sq For GI: Not indicated # Code status Full code # Dispo: Admitted in ICU. Can be transferred to Med-Surg. Illness, Investigation and Plan of care explained to the patient. She verbalized understanding. Case seen and discussed with Dr. Avalos. Visit type - Emergency Visit Emergency Visit: Yes ED Registration Date: 05/28/17 Care time: The patient presented to the Emergency Department on the above date and was hospitalized for further evaluation of their emergent condition. - New Patient This patient is new to me today: Yes Date on this admission: 06/01/17 - Critical Care Critical Care patient: Yes Total Critical Care Time (in minutes): 35 Critical Care Statement: The care of this patient involved high complexity decision making to prevent further life threatening deterioration of the patient 's condition and/or to evalute & treat vital organ system(s) failure or risk of failure.
[2017-06-01] MEDS ORDERED: PROCHLORPERAZINE MALEATE 25 MG SUPP.RECT PR PRN (17:13)
[2017-06-01] MEDS ORDERED: ACETAMINOPHEN 325 MG TABLET (FP) PO PRN (17:13)
[2017-06-01] MEDS ORDERED: ONDANSETRON 4 MG/2 ML VIAL IVPUSH PRN (17:13)
[2017-06-01] MEDS ORDERED: METOCLOPRAMIDE HCL INJECTION 10 MG/2 ML VIAL IVPB PRN (17:13)
[2017-06-01] MEDS ORDERED: PROMETHAZINE HCL 25 MG/1 ML VIAL IVPB PRN (17:13)
--- NOTE | 2017-06-01 17:39 | PN ---
Teaching Attending Note Name of Resident: Eve Pina ATTENDING PHYSICIAN STATEMENT I saw and evaluated the patient. I reviewed the resident's note and discussed the case with the resident. I agree with the resident's findings and plan as documented. SUBJECTIVE: Patient seen and examined in the ICU. Overall tachycardia has improved. Still with pain issues mostly in the lower abdominal area described as "tense". Saturation 100% on RA at rest. Reports that her breathing has overall improved. Some dry cough. No hemoptysis or CP. Ambulated with walker. CXR : Atelectasis +/- infiltrate/consolidation at the left base. Intake & Output 05/29/17 05/30/17 05/31/17 06/01/17 23:59 23:59 23:59 23:59 Intake Total 6915 3740 1665 250 Output Total 2290 3695 2060 696 Balance 4625 45 395 446 Weight 254 lb 14.4 oz 255 lb 14.4 oz 253 lb 15.56 oz Last Vital Signs Temp Pulse Resp BP Pulse Ox 98.6 F 102 H 16 113/63 89 L 06/01/17 14:00 06/01/17 16:05 06/01/17 16:05 06/01/17 16:05 06/01/17 13:44 Active Medications Acetaminophen (Tylenol -) 325 mg PO Q4H PRN PRN Reason: PAIN Stop: 06/03/17 19:44 Last Admin: 06/01/17 09:08 Dose: 325 mg Acetaminophen (Tylenol -) 650 mg PO Q6H PRN PRN Reason: FEVER OR PAIN Diphenhydramine HCl (Benadryl Injection -) 12.5 mg IVPUSH ONCE PRN PRN Reason: FOR ITCHING Stop: 06/02/17 00:00 Ferrous Sulfate (Feosol -) 325 mg PO DAILY MATTHEW Last Admin: 06/01/17 09:57 Dose: 325 mg Heparin Sodium (Porcine) (Heparin -) 5,000 unit SQ BID MATTHEW Piperacillin Sod/Tazobactam Sod (Zosyn 4.5gm Ivpb (Pre-Docked)) 100 mls @ 200 mls/hr IVPB Q8H-IV MATTHEW PRN Reason: Protocol Last Admin: 06/01/17 09:57 Dose: 200 mls/hr Metoclopramide HCl (Reglan Injection -) 10 mg IVPB Q6H PRN PRN Reason: NAUSEA AND/OR VOMITING Morphine Sulfate (Morphine Injection -) 2 mg IVPUSH Q6H PRN PRN Reason: PAIN Ondansetron HCl (Zofran Injection) 4 mg IVPUSH Q6H PRN PRN Reason: NAUSEA AND/OR VOMITING Oxycodone HCl (Roxicodone -) 5 mg PO Q4H PRN PRN Reason: PAIN Last Admin: 06/01/17 08:38 Dose: 5 mg Prochlorperazine Maleate (Compazine Suppository -) 25 mg [place] Q12H PRN PRN Reason: NAUSEA AND/OR VOMITING Promethazine HCl (Phenergan Injection -) 12.5 mg IVPB Q6H PRN PRN Reason: NAUSEA AND/OR VOMITING Simethicone (Mylicon -) 80 mg PO Q6H PRN PRN Reason: GAS Last Admin: 05/31/17 17:01 Dose: 80 mg Constitutional: Yes: Awake and alert Eyes: Yes: WNL, Conjunctiva Clear, EOM Intact HENT: Yes: WNL, Atraumatic, Normocephalic Neck: Yes: WNL, Supple, Trachea Midline Cardiovascular: Yes: WNL, Regular Rate and Rhythm Respiratory: Yes: Bibasilar rhonchi Left > Right Gastrointestinal: Yes: (+) BS ...Rectal Exam: Yes: Deferred Renal/: Yes: WNL Breast(s): Yes: Other (s/p B/l Mastectomy w/ Flap.), multiple LUDMILA drains Musculoskeletal: Yes: WNL Extremities: Yes: WNL Edema: No Peripheral Pulses WNL: Yes Integumentary: Yes: WNL Wound/Incision: Yes: Clean/Dry, Well Approximated Neurological: Yes: WNL ...Motor Strength: WNL Psychiatric: Yes: WNL Labs: Laboratory Results - last 24 hr 05/31/17 05/31/17 06/01/17 18:00 19:00 05:15 WBC 13.4 H 9.5 RBC 3.62 3.22 L Hgb 9.8 L D 8.9 L Hct 30.0 L D 25.9 L MCV 82.7 80.4 MCH 27.1 27.7 MCHC 32.7 34.4 RDW 17.6 H 17.4 H Plt Count 280 D 319 MPV 9.1 8.8 Differential Comment Slide scanned Platelet Estimate Adequate Platelet Comment No clumping noted INR Sodium Potassium Chloride Carbon Dioxide Anion Gap BUN Creatinine Random Glucose Calcium Phosphorus Magnesium Urine Color Ltyellow Urine Appearance Clear Urine pH 7.0 Ur Specific [place] 1.015 Urine Protein 1+ H Urine Glucose (UA) Negative Urine Ketones Negative Urine Blood 2+ H Urine Nitrite Negative Urine Bilirubin Negative Urine Urobilinogen 2.0 H Ur Leukocyte Esterase Negative Urine RBC 14 Urine WBC 5 Urine Mucus Rare 06/01/17 06/01/17 05:15 05:15 WBC RBC Hgb Hct MCV MCH MCHC RDW Plt Count MPV Differential Comment Platelet Estimate Platelet Comment INR 1.11 Sodium 139 Potassium 3.4 L Chloride 102 Carbon Dioxide 29 Anion Gap 8 BUN 5 L Creatinine 0.5 L Random Glucose 131 H Calcium 8.0 L Phosphorus 2.5 D Magnesium 2.4 Urine Color Urine Appearance Urine pH Ur Specific [place] Urine Protein Urine Glucose (UA) Urine Ketones Urine Blood Urine Nitrite Urine Bilirubin Urine Urobilinogen Ur Leukocyte Esterase Urine RBC Urine WBC Urine Mucus Problem List - Problems (1) Breast CA Code(s): C50.919 - MALIGNANT NEOPLASM OF UNSP SITE OF UNSPECIFIED FEMALE BREAST (2) Post-mastectomy pain Code(s): G89.18 - OTHER ACUTE POSTPROCEDURAL PAIN Assessment/Plan Fever -> LLL atelectasis +/- LLL PNA / (?) UTI Breast CA -> B/L mastectomy w/ flaps Left PTX -> S/P CT insertion Tachycardia/Lactic acidosis ABX per ID Will hold on CT for now as the patient reports that she will unlikely be able to lay flat to have the CT completed (we also have an abnormal CXR) O2 as needed VTE prophylaxis Continuous flap monitoring per surgery Local wound care per surgery Pain control Incentive Spirometry Will readdress CT imaging in the AM depending on her clinical course and our ability to better control her pain to lay flat Dr Avalos
[2017-06-01] MEDS: HEPARIN NA (PORCINE) 5,000 UNITS/ML 1ML VIAL SQ SCH (21:55)
[2017-06-02] MEDS: PIPERACILLIN/TAZOB 4.5 GM 100 ML IVPB SCH ×3 (01:06→20:41)
[2017-06-02 06:40] LABS: MCH 27.8 pg (25.7-33.7); MCHC 33.9 g/dl (32.0-36.0); MEAN PLT VOLUME 8.6 fl (7.5-11.1); PLATELET COUNT 311 K/MM3 (134-434); RDW 17.7 % (11.6-15.6); WHITE BLOOD COUNT 7.1 K/mm3 (4.0-10.0)
[2017-06-02 07:10] LABS: ALBUMIN 2.2 g/dl (3.4-5.0); ANION GAP 7 (8-16); CALCIUM 8.1 mg/dL (8.5-10.1); CO2 31 mmol/L (21-32); CREATININE 0.5 mg/dL (0.55-1.02); GLUCOSE,RANDOM 119 mg/dL (74-106); MAGNESIUM 2.5 mg/dL (1.8-2.4); PHOSPHOROUS 2.8 mg/dL (2.5-4.9); SGOT/AST 33 U/L (15-37); SGPT/ALT 30 U/L (12-78)
[2017-06-02 07:12] LABS: ALK PHOS 91 U/L (45-117); BILIRUBIN,TOTAL 0.7 mg/dL (0.2-1.0); TOT PROT 5.3 g/dl (6.4-8.2)
--- NOTE | 2017-06-02 09:03 | PN ---
Progress Note (short form) - Note Progress Note: Patient stable, afebrile, HCT stable at 25-26 for 2 days. SQ heparin restarted , ambulating. LUDMILA's now very thin serous fluid without clinical evidence of significant collection. She remains slightly tachycardic at 100 likely from low HCT. CXR with significant atelectasis which is consistent with clinical picture. PE is low suspicion, but will rule out with spiral CT. CT will also better define any lung pathology to guide post hospital abx course. Plan is for transfer out of ICU today. Transfuse 1-2 units PRBC, CTA. Hopeful discharge tomorrow with recommendations from ID regarding home abx (if any).
[2017-06-02] MEDS: HEPARIN NA (PORCINE) 5,000 UNITS/ML 1ML VIAL SQ SCH ×2 (09:12→21:04)
[2017-06-02] MEDS: FERROUS SO4 325 MG TABLET (FP) PO SCH (09:13)
--- NOTE | 2017-06-02 10:47 | PATH ---
Surgical Pathology Report Patient Name: PANKAJ NOLEN [facility]. Rec. 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 Specimen(s) Received A: LEFT MASTECTOMY STITCH LATERAL EDGE OF SKIN B: RIGHT MASTECTOMY STITCH LAO LATERAL EDGE OF SKIN C: LEFT UPPER LOBE WEDGE Clinical History BRCA 2+, right breast DCIS Final Diagnosis A. LEFT BREAST, MASTECTOMY: ATYPICAL LOBULAR HYPERPLASIA (ALH), ARISING IN A BACKGROUND OF FIBROCYSTIC CHANGES INCLUDING USUAL DUCTAL HYPERPLASIA (UDH), STROMAL FIBROSIS, DUCTAL DILATATION, CYSTIC APOCRINE METAPLASIA, AND ASSOCIATED CALCIFICATION. NO CARCINOMA IDENTIFIED. B. RIGHT BREAST, MASTECTOMY: DUCTAL CARCINOMA IN SITU (DCIS), INTERMEDIATE NUCLEAR GRADE, SOLID AND PAPILLARY PATTERNS WITH APOCRINE FEATURES, CENTRAL NECROSIS, AND ASSOCIATED CALCIFICATION. DCIS IS PRESENT IN 6 OF 19 SUBMITTED BLOCKS (6/19), AND IS PRESENT IN THE LOWER INNER QUADRANT, UPPER INNER QUADRANT, AND RETROAREOLAR REGIONS. DCIS IS LESS THAN 0.1 CM FROM THE DEEP MARGIN OF EXCISION, AND A 0.5 CM FROM THE ANTERIOR MARGIN OF EXCISION. ATYPICAL LOBULAR HYPERPLASIA (ALH), WITH AREA SUGGESTIVE OF FOCAL LOBULAR CARCINOMA IN SITU (LCIS), CLASSICAL TYPE PRESENT. REMAINING BREAST TISSUE WITH FIBROCYSTIC CHANGES INCLUDING USUAL DUCTAL HYPERPLASIA (UDH), STROMAL FIBROSIS, DUCTAL DILATATION, ADENOSIS, CYSTIC METAPLASIA, AND ASSOCIATED CALCIFICATION PRESENT. CHANGES CONSISTENT WITH PRIOR EXCISION SITE PRESENT. C. LUNG, LEFT UPPER LOBE, WEDGE EXCISION: BENIGN LUNG TISSUE WITH FOCAL AREAS SUGGESTIVE OF EMPHYSEMATOUS CHANGES. Comment: See prior specimens [id number], [id number], and [id number]. A Cancer Case Summary is included with [id number]. Electronically Signed Chad Farooq M.D. Gross Description A. Received in formalin, labeled "left mastectomy," is a 1026 gram, 20.5 x 19.5 x 6.0 cm. left mastectomy specimen with a suture marking the lateral edge of the skin, per the surgeon. The anterior surface displays a 14.0 x 7.0 cm brown, elliptical portion of skin with a 1.0 cm in diameter nipple. The deep margin is inked black and the anterior soft tissue margin is inked blue. The specimen is serially sectioned from medial to lateral. Sectioning reveals abundant dense, white fibrous tissue. No definitive masses are identified. Emergency Man sections are submitted in 16 cassettes as follows: 1-serially sectioned nipple; 2-subareolar shave; 3-5-upper outer quadrant; 6-8-lower outer quadrant; 9-10-upper inner quadrant; 11-12-lower inner quadrant; 66-81-[place] tissue; 15-skin and anterior soft tissue margin; 16-deep margin. B. Received in formalin, labeled "right breast mastectomy," is an 823 gram, 21.0 x 20.0 x 5.0 cm. right mastectomy specimen with a suture marking the lateral edge of the skin, per the surgeon. The anterior surface displays an 11.5 x 6.5 cm brown, elliptical portion of skin with a 1.2 cm diameter nipple. The deep margin is inked black and the anterior soft tissue margin is inked blue. The specimen is serially sectioned from lateral to medial. Sectioning reveals a previous biopsy cavity in the upper inner quadrant (UIQ). The cavity is surrounded by abundant dense, white, focally firm fibrous tissue. The remaining breast parenchyma displays abundant dense white fibrous tissue. No definite masses are identified. Emergency Man sections are submitted in 19 cassettes as follows: 1-serially sectioned nipple; 2-subareolar shave; 3-5-UIQ previous biopsy cavity; 7-4-exkoyguszv UIQ tissue surrounding biopsy cavity; 9-11-lower inner quadrant; 12-14-upper outer quadrant; 15-16-lower outer quadrant; 17-retroareolar tissue; 18-skin and anterior soft tissue margin; 19-deep margin. Total formalin fixation time: Approximately 24 hours C. Received in formalin labeled "left upper lobe wedge," is a 2.5 x 2.3 x 0.4 cm hair, triangular lung wedge resection with a stapled margin of resection. The pleura is hair and intact. Sectioning reveals hair, spongy lung parenchyma. No definitive lesions are identified. The specimen is entirely submitted in 3 cassettes as follows: 1-shave of staple line; 2-3-lqyyrixd submitted lung wedge. 05/29/2017 shad05/29/2017
--- NOTE | 2017-06-02 12:36 | PN ---
Physical Exam: SUBJECTIVE: Patient seen and examined at bed side this morning. Feels much better. Pain has improved. Walked a couple of steps. no acute events overnight. OBJECTIVE: Vital Signs Period Temp Pulse Resp BP Sys/Leiva Pulse Ox Last 24 Hr 98 F-98.8 F 94-107 16-21 111-143/63-93 89-98 GENERAL: Young female, sitting comfortably in a chair, awake, alert, and fully oriented, in no acute distress. HEAD: Normal with no signs of trauma. EYES: EOM intact, no pallor or icterus. ENT: Ears normal, moist mucous membranes. NECK: Supple. LUNGS: Breath sounds equal, clear to auscultation bilaterally, no wheezes, no crackles, no accessory muscle use. HEART: Tachycardic, Regular rate and rhythm, S1, S2 without murmur, rub or gallop. BREAST: no erythema, no drainage from the surgical site, tender to palpation, 4 drains in total, 2 on both sides. ABDOMEN: Soft, nontender, nondistended, normoactive bowel sounds, no guarding, no rebound, no hepatosplenomegaly, no masses. EXTREMITIES: 2+ pulses, warm, well-perfused, no edema. NEUROLOGICAL: No facial droop, Cranial nerves II through XII grossly intact. Normal speech, gait not observed. PSYCH: Normal mood, normal affect. SKIN: Warm, dry, normal turgor, no rashes or lesions noted Laboratory Results - last 24 hr 06/02/17 06/02/17 06/02/17 05:15 05:15 10:30 WBC 7.1 RBC 3.08 L Hgb 8.6 L Hct 25.3 L MCV 82.0 MCH 27.8 MCHC 33.9 RDW 17.7 H Plt Count 311 MPV 8.6 Sodium 142 Potassium 3.4 L Chloride 104 Carbon Dioxide 31 Anion Gap 7 L BUN 5 L Creatinine 0.5 L Creat Clearance w eGFR > 60 Random Glucose 119 H Calcium 8.1 L Phosphorus 2.8 Magnesium 2.5 H Total Bilirubin 0.7 D AST 33 ALT 30 D Alkaline Phosphatase 91 D Total Protein 5.3 L Albumin 2.2 L Blood Type A POSITIVE Antibody Screen Negative Crossmatch See Detail Active Medications Generic Name Dose Route Start Last Admin Trade Name Freq PRN Reason Stop Dose Admin Acetaminophen 325 mg 05/31/17 19:45 06/01/17 09:08 Tylenol - PO 06/03/17 19:44 325 mg Q4H PRN Administration PAIN Acetaminophen 650 mg 06/01/17 17:13 Tylenol - PO Q6H PRN FEVER OR PAIN Ferrous Sulfate 325 mg 06/01/17 10:00 06/02/17 09:13 Feosol - PO Not Given DAILY MATTHEW Heparin Sodium (Porcine) 5,000 unit 06/01/17 22:00 06/02/17 09:12 Heparin - SQ 5,000 unit BID MATTHEW Administration Piperacillin Sod/Tazobactam Sod 100 mls @ 200 mls/hr 06/01/17 10:00 06/02/17 09 :12 Zosyn 4.5gm Ivpb (Pre-Docked) IVPB 200 mls/hr Q8H-IV MATTHEW Administration Protocol Metoclopramide HCl 10 mg 06/01/17 17:13 Reglan Injection - IVPB Q6H PRN NAUSEA AND/OR VOMITING Morphine Sulfate 2 mg 05/31/17 19:48 Morphine Injection - IVPUSH Q6H PRN PAIN Ondansetron HCl 4 mg 06/01/17 17:13 Zofran Injection IVPUSH Q6H PRN NAUSEA AND/OR VOMITING Oxycodone HCl 5 mg 05/31/17 19:45 06/01/17 08:38 Roxicodone - PO 5 mg Q4H PRN Administration PAIN Prochlorperazine Maleate 25 mg 06/01/17 17:13 Compazine Suppository - [place] Q12H PRN NAUSEA AND/OR VOMITING Promethazine HCl 12.5 mg 06/01/17 17:13 Phenergan Injection - IVPB Q6H PRN NAUSEA AND/OR VOMITING Simethicone 80 mg 05/31/17 14:29 05/31/17 17:01 Mylicon - PO 80 mg Q6H PRN Administration GAS ASSESSMENT/PLAN: Patient is a 47 year old female, with history of breast Ca s/p mastectomy now with JINA flap reconstruction and left wedge resection. # Breast Ca s/p JINA POD Day 5 Doing much better Pain controlled with Oxycodone # SOB, tachycardic- ruled out PE CT chest with IV contrast done today, . B/L Atelectasis likely due to decreased inspiratory effort secondary to post op pain. # Symptomatic anemia 1 PRBC to be transfused, might help her symptomatic anemia. Repeat CBC post transfusion. # Sepsis Questionable pneumonia , has atelectasis Leukocytosis improved, afebrile this morning Continue IV Zosyn Day 2, would consider stopping the antibiotics. # FEN Not on IV fluids, tolerating PO well. electrolytes to be repeated tomorrow Soft diet # Prophylaxis For DVT: On Heparin sq For GI: Not indicated # Code status Full code # Dispo: Admitted in ICU. Can be transferred to Med-Surg. Possible discharge home tomorrow with VNS. Illness, Investigation and Plan of care explained to the patient. She verbalized understanding. Case seen and discussed with Dr. Avalos. Visit type - Emergency Visit Emergency Visit: Yes ED Registration Date: 05/28/17 Care time: The patient presented to the Emergency Department on the above date and was hospitalized for further evaluation of their emergent condition. - New Patient This patient is new to me today: No - Critical Care Critical Care patient: Yes Total Critical Care Time (in minutes): 35 Critical Care Statement: The care of this patient involved high complexity decision making to prevent further life threatening deterioration of the patient 's condition and/or to evalute & treat vital organ system(s) failure or risk of failure.
--- NOTE | 2017-06-02 13:02 | PN ---
Teaching Attending Note Name of Resident: Eve Pina ATTENDING PHYSICIAN STATEMENT I saw and evaluated the patient. I reviewed the resident's note and discussed the case with the resident. I agree with the resident's findings and plan as documented. SUBJECTIVE: Patient seen and examined in the ICU. There was still a concern over her persistent tachycardia. CTA : no PE / bibasilar atelectasis. Intake & Output 05/30/17 05/31/17 06/01/17 06/02/17 23:59 23:59 23:59 23:59 Intake Total 3740 1665 400 300 Output Total 3695 2060 1016 582 Balance 45 -395 -616 -282 Weight 254 lb 14.4 oz 255 lb 14.4 oz 253 lb 15.56 oz 248 lb 7.375 oz Last Vital Signs Temp Pulse Resp BP Pulse Ox 98.6 F 101 H 20 127/93 95 06/02/17 06:00 06/02/17 08:00 06/02/17 08:00 06/02/17 08:00 06/01/17 22:00 Active Medications Acetaminophen (Tylenol -) 325 mg PO Q4H PRN PRN Reason: PAIN Stop: 06/03/17 19:44 Last Admin: 06/01/17 09:08 Dose: 325 mg Acetaminophen (Tylenol -) 650 mg PO Q6H PRN PRN Reason: FEVER OR PAIN Ferrous Sulfate (Feosol -) 325 mg PO DAILY [facility] Last Admin: 06/02/17 09:13 Dose: Not Given Heparin Sodium (Porcine) (Heparin -) 5,000 unit SQ BID [facility] Last Admin: 06/02/17 09:12 Dose: 5,000 unit Piperacillin Sod/Tazobactam Sod (Zosyn 4.5gm Ivpb (Pre-Docked)) 100 mls @ 200 mls/hr IVPB Q8H-IV MATTHEW PRN Reason: Protocol Last Admin: 06/02/17 09:12 Dose: 200 mls/hr Metoclopramide HCl (Reglan Injection -) 10 mg IVPB Q6H PRN PRN Reason: NAUSEA AND/OR VOMITING Morphine Sulfate (Morphine Injection -) 2 mg IVPUSH Q6H PRN PRN Reason: PAIN Ondansetron HCl (Zofran Injection) 4 mg IVPUSH Q6H PRN PRN Reason: NAUSEA AND/OR VOMITING Oxycodone HCl (Roxicodone -) 5 mg PO Q4H PRN PRN Reason: PAIN Last Admin: 06/01/17 08:38 Dose: 5 mg Prochlorperazine Maleate (Compazine Suppository -) 25 mg [place] Q12H PRN PRN Reason: NAUSEA AND/OR VOMITING Promethazine HCl (Phenergan Injection -) 12.5 mg IVPB Q6H PRN PRN Reason: NAUSEA AND/OR VOMITING Simethicone (Mylicon -) 80 mg PO Q6H PRN PRN Reason: GAS Last Admin: 05/31/17 17:01 Dose: 80 mg Constitutional: Yes: Awake and alert Eyes: Yes: WNL, Conjunctiva Clear, EOM Intact HENT: Yes: WNL, Atraumatic, Normocephalic Neck: Yes: WNL, Supple, Trachea Midline Cardiovascular: Yes: WNL, Regular Rate and Rhythm Respiratory: Yes: Bibasilar rhonchi Left > Right Gastrointestinal: Yes: (+) BS ...Rectal Exam: Yes: Deferred Renal/: Yes: WNL Breast(s): Yes: Other (s/p B/l Mastectomy w/ Flap.), multiple LUDMILA drains Musculoskeletal: Yes: WNL Extremities: Yes: WNL Edema: No Peripheral Pulses WNL: Yes Integumentary: Yes: WNL Wound/Incision: Yes: Clean/Dry, Well Approximated Neurological: Yes: WNL ...Motor Strength: WNL Psychiatric: Yes: WNL Labs: Laboratory Results - last 24 hr 06/02/17 06/02/17 06/02/17 05:15 05:15 10:30 WBC 7.1 RBC 3.08 L Hgb 8.6 L Hct 25.3 L MCV 82.0 MCH 27.8 MCHC 33.9 RDW 17.7 H Plt Count 311 MPV 8.6 Sodium 142 Potassium 3.4 L Chloride 104 Carbon Dioxide 31 Anion Gap 7 L BUN 5 L Creatinine 0.5 L Creat Clearance w eGFR > 60 Random Glucose 119 H Calcium 8.1 L Phosphorus 2.8 Magnesium 2.5 H Total Bilirubin 0.7 D AST 33 ALT 30 D Alkaline Phosphatase 91 D Total Protein 5.3 L Albumin 2.2 L Blood Type A POSITIVE Antibody Screen Negative Crossmatch See Detail Problem List - Problems (1) Breast CA Code(s): C50.919 - MALIGNANT NEOPLASM OF UNSP SITE OF UNSPECIFIED FEMALE BREAST (2) Post-mastectomy pain Code(s): G89.18 - OTHER ACUTE POSTPROCEDURAL PAIN Assessment/Plan PE Ruled out by CTA Fever -> Bibasilar atelectasis Breast CA -> B/L mastectomy w/ flaps Left PTX -> S/P CT insertion Tachycardia/Lactic acidosis Will D/W to potentially D/C ABX O2 as needed VTE prophylaxis Flap monitoring per surgery Local wound care per surgery Pain control Incentive Spirometry Dr Avalos
--- NOTE | 2017-06-02 13:11 | PN ---
Progress Note, Physician History of Present Illness: OOB in chair No complaints No chest pain/ dyspnea/ cough Temps, WBC down Cultures negative - Current Medication List Current Medications: Active Medications Acetaminophen (Tylenol -) 325 mg PO Q4H PRN PRN Reason: PAIN Stop: 06/03/17 19:44 Last Admin: 06/01/17 09:08 Dose: 325 mg Acetaminophen (Tylenol -) 650 mg PO Q6H PRN PRN Reason: FEVER OR PAIN Ferrous Sulfate (Feosol -) [address] [facility] Last Admin: 06/02/17 09:13 Dose: Not Given Heparin Sodium (Porcine) (Heparin -) 5,000 unit SQ BID MATTHEW Last Admin: 06/02/17 09:12 Dose: 5,000 unit Piperacillin Sod/Tazobactam Sod (Zosyn 4.5gm Ivpb (Pre-Docked)) 100 mls @ 200 mls/hr IVPB Q8H-IV MATTHEW PRN Reason: Protocol Last Admin: 06/02/17 09:12 Dose: 200 mls/hr Metoclopramide HCl (Reglan Injection -) 10 mg IVPB Q6H PRN PRN Reason: NAUSEA AND/OR VOMITING Morphine Sulfate (Morphine Injection -) 2 mg IVPUSH Q6H PRN PRN Reason: PAIN Ondansetron HCl (Zofran Injection) 4 mg IVPUSH Q6H PRN PRN Reason: NAUSEA AND/OR VOMITING Oxycodone HCl (Roxicodone -) 5 mg PO Q4H PRN PRN Reason: PAIN Last Admin: 06/01/17 08:38 Dose: 5 mg Prochlorperazine Maleate (Compazine Suppository -) 25 mg [place] Q12H PRN PRN Reason: NAUSEA AND/OR VOMITING Promethazine HCl (Phenergan Injection -) 12.5 mg IVPB Q6H PRN PRN Reason: NAUSEA AND/OR VOMITING Simethicone (Mylicon -) 80 mg PO Q6H PRN PRN Reason: GAS Last Admin: 05/31/17 17:01 Dose: 80 mg - Objective Vital Signs: Vital Signs Temperature 99.0 F 06/02/17 13:07 Pulse Rate 96 H 06/02/17 13:07 Respiratory Rate 20 06/02/17 13:07 Blood Pressure 126/85 06/02/17 13:07 O2 Sat by Pulse Oximetry (%) 95 06/01/17 22:00 Constitutional: Yes: No Distress Eyes: Yes: Conjunctiva Clear Cardiovascular: Yes: Regular Rate and Rhythm, Tachycardia, S1, S2 Respiratory: Yes: CTA Bilaterally Gastrointestinal: Yes: Normal Bowel Sounds, Soft, Other (+ incisonal tenderness) Edema: Yes Labs: CBC, BMP 06/02/17 05:15 06/02/17 05:15 INR, PTT INR 1.11 (0.82-1.09) 06/01/17 05:15 Assessment/Plan Post op day #5 bilateral mastectomy/ JINA flap reconstruction Fever/ leukocytosis- resolved Continue antibiotics additional 24hr
[2017-06-02] MEDS ORDERED: DEXTROSE 5%-WATER 100 ML IVPB ONE (20:46)
[2017-06-02] MEDS ORDERED: PIPERACILLIN/TAZOBACTAM 4.5 GM VIAL IVPB ONE (20:46)
[2017-06-02] MEDS: PIPERACILLIN/TAZOB 4.5 GM 4.5 GM in DEXTROSE 5%-WATER 100 ML IVPB SCH (21:04)
[2017-06-03] MEDS ORDERED: PIPERACILLIN/TAZOBACTAM 4.5 GM VIAL IVPB ONE ×3 (00:41→17:34)
[2017-06-03] MEDS ORDERED: DEXTROSE 5%-WATER 100 ML IVPB ONE ×3 (00:41→17:34)
[2017-06-03] MEDS: PIPERACILLIN/TAZOB 4.5 GM 4.5 GM in DEXTROSE 5%-WATER 100 ML IVPB SCH ×3 (01:51→19:47)
[2017-06-03 07:36] LABS: MCH 27.3 pg (25.7-33.7); MEAN CELL VOLUME 82.8 fl (80-96); MEAN PLT VOLUME 8.2 fl (7.5-11.1); PLATELET COUNT 273 K/MM3 (134-434); RDW 17.5 % (11.6-15.6); WHITE BLOOD COUNT 6.8 K/mm3 (4.0-10.0)
[2017-06-03 08:05] LABS: ALBUMIN 2.1 g/dl (3.4-5.0); ANION GAP 7 (8-16); CALCIUM 7.7 mg/dL (8.5-10.1); CO2 29 mmol/L (21-32); CREATININE 0.5 mg/dL (0.55-1.02); GLUCOSE,RANDOM 111 mg/dL (74-106); MAGNESIUM 2.2 mg/dL (1.8-2.4); SGOT/AST 46 U/L (15-37); SGPT/ALT 41 U/L (12-78); TOT PROT 5.2 g/dl (6.4-8.2)
[2017-06-03 08:11] LABS: ALK PHOS 98 U/L (45-117); BILIRUBIN,TOTAL 0.6 mg/dL (0.2-1.0)
[2017-06-03] MEDS: HEPARIN NA (PORCINE) 5,000 UNITS/ML 1ML VIAL SQ SCH (09:25)
[2017-06-03] MEDS: FERROUS SO4 325 MG TABLET (FP) PO SCH (09:29)
--- NOTE | 2017-06-03 13:40 | PN ---
Progress Note (short form) - Note Progress Note: doing well no further fevers constipation Vital Signs Period Temp Pulse Resp BP Sys/Leiva Pulse Ox Last 24 Hr 98.3 F-98.9 F 80-98 20-20 127-144/77-80 sitting in a chair cor-rrr lungs decreased bs at bases abd soft,nt ext trace edema +LUDMILA drains for breast flaps- no erythema of incisions CBC, BMP 06/03/17 05:35 06/03/17 05:35 Microbiology 05/31/17 01:00 Blood - Peripheral Venous Blood Culture - Preliminary NO GROWTH OBTAINED AFTER 72 HOURS, INCUBATION TO CONTINUE FOR 2 DAYS. 05/31/17 01:00 Blood - Peripheral Venous Blood Culture - Preliminary NO GROWTH OBTAINED AFTER 72 HOURS, INCUBATION TO CONTINUE FOR 2 DAYS. 05/31/17 22:30 Blood - Peripheral Venous Blood Culture - Preliminary NO GROWTH OBTAINED AFTER 48 HOURS, INCUBATION TO CONTINUE FOR 3 DAYS. 05/31/17 22:00 Blood - Peripheral Venous Blood Culture - Preliminary NO GROWTH OBTAINED AFTER 48 HOURS, INCUBATION TO CONTINUE FOR 3 DAYS. 05/30/17 22:00 Sputum - Expectorated Gram Stain - Final 05/30/17 22:00 Sputum - Expectorated Sputum Culture - Final NORMAL RESPIRATORY BJ 05/31/17 19:00 Urine - Urine Garcia Urine Culture - Final NO GROWTH OBTAINED 05/30/17 22:00 Urine - Urine Garcia Urine Culture - Final NO GROWTH OBTAINED chest ct- bilateral atelectasis a/p fevers resolved- ?atelectasis post op bilateral breast reconstruction/mastectomy 05/28/17 will d/c antibiotics and observe encourage incentive spirometry
[2017-06-03 14:13] VITALS: BP 134/73; PULSE 97; TEMP 98.2
--- NOTE | 2017-06-03 15:41 | PN ---
Progress Note (short form) - Note Progress Note: POD 6 post Bilateral JINA flap reconstruction. Afebrile for several days, HCT stable, all LUDMILA's thin serous fluid, ambulating, urinating, Margarita PO, Tachycardia resolved with additional transfusion yesterday. OK for d/c home today with drain instructions and PO augmentin Patient much improved on incentive spirometer and will bring home. Follow up with Dr. Vazquez in one week and with me in two weeks.
--- NOTE | 2017-06-04 07:47 | DS ---
DATE OF ADMISSION: 05/28/2017 DATE OF DISCHARGE: 06/03/2017 REASON FOR ADMISSION: The patient was admitted by Dr. 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 Gruber and Dr. Barron Reyna. Those procedures were dictated as the operative notes. HOSPITAL COURSE: The patient was brought on the ventilator to the recovery room and to the ICU for postoperative monitoring. Her hospital course was significant for the following: Patient had a chest tube on her left side, a place for an intraoperative pneumothorax, which was removed on postoperative day one and followed by serial chest x-rays showing no recurrence of pneumothorax. The patient on postoperative day two had a decrease in her hematocrit with a tachycardia. Hematocrit was 20. She was transfused 2 units of packed red blood cells with an appropriate response to the transfusion to 25, where her tachycardia was partially resolved. She continued to improve with her incentive spirometry. However, she continued with bibasilar atelectasis, which was seen on the serial chest x-rays. Patient had several low-grade fevers for which fever workup was negative. In addressing the patients continued low-grade tachycardia, a chest CT was performed to rule out pulmonary embolus. This was a spiral CT angiography. No pulmonary embolus was seen. No pneumonia was seen. Patient had a negative bilateral lower extremity duplex for no DVT. She has been ambulating. She has progressed with her diet. On hospital day five, the patient, although having a stable hematocrit at 25, was transfused another unit of packed red blood cells with a further improvement of her hematocrit to 28.5, which remained stable on the next day and a further resolution of her tachycardia. On postoperative day six, the patient is not tachycardic, has not been having fever. She is ambulating, tolerating p.o. well. Flaps have been viable with good color refill and audible flow signals throughout her hospital stay. Monitoring was as per standard protocol. DISCHARGE MEDICATION: Patient was discharged on Augmentin b.i.d. treating prophylaxis for drain site infection and possible risk of pneumonia given her significant atelectasis. PLAN: The patient was instructed on incentive spirometry use and ambulation. She will be self-administering 40 mg of Lovenox daily. She is to take oral Percocet p.r.n. pain and will follow with Dr. Vazquez in one week for drain removal of the breast and possibly one on the abdomen. It should be noted the patient had been maintained on subcutaneous heparin for her hospital stay with the exception of the period during which her hematocrit dropped, which it was stopped for roughly 36 hours. LACI GRUBER M.D. [id number]
== END 2017-06-03 19:27 | disposition home or self-care (01) | DRG 582 ==
LOC: JSAMEDAYSX 05:02 → JICU 20:54 → J7W 06-02 19:10
PROVIDERS: ADMIT Surgery; ATTEND Surgery
PROC: 0BQG0ZZ Repair Left Upper Lung Lobe, Open Approach (ICD-10-PCS; 2017-05-28)
PROC: 0W9B00Z Drainage of Left Pleural Cavity with Drainage Device, Open Approach (ICD-10-PCS; 2017-05-28)
PROC: 0HTV0ZZ Resection of Bilateral Breast, Open Approach (ICD-10-PCS; principal; 2017-05-28 08:30)
PROC: 0HRV077 Replacement of Bilateral Breast using Deep Inferior Epigastric Artery Perforator Flap, Open Approach (ICD-10-PCS; 2017-05-28 08:30)
PROC: 0BBG0ZX Excision of Left Upper Lung Lobe, Open Approach, Diagnostic (ICD-10-PCS; 2017-05-28 08:30)
PROC: 0BPQX0Z Removal of Drainage Device from Pleura, External Approach (ICD-10-PCS; 2017-05-29)
PROC: 30233N1 Transfusion of Nonautologous Red Blood Cells into Peripheral Vein, Percutaneous Approach (ICD-10-PCS; 2017-05-30)
DX: C50.911 Malignant neoplasm of unspecified site of right female breast (principal); A41.9 Sepsis, unspecified organism; J95.71 Accidental puncture and laceration of a respiratory system organ or structure during a respiratory system procedure; E87.2 Acidosis; J98.11 Atelectasis; X58.XXXA Exposure to other specified factors, initial encounter; Y92.238 Other place in hospital as the place of occurrence of the external cause; G89.18 Other acute postprocedural pain; R00.0 Tachycardia, unspecified; R50.9 Fever, unspecified; D64.9 Anemia, unspecified; Y83.8 Other surgical procedures as the cause of abnormal reaction of the patient, or of later complication, without mention of misadventure at the time of the procedure
CPT/HCPCS: 36415; 36430; 71010-TC; 71260-TC; 80048; 80053; 80076; 81003; 81015; 83605; 83735; 83880; 84100; 84703; 85025; 85027; 85610; 85730; 86850; 86900; 86901; 86922; 87040; 87070; 87086; 87205; 88307-TC; 93970-TC; 94760; J1644; P9038; P9058

== ENCOUNTER 2018-06-14 04:54 | Day surgery (SDC) | payer OTHER ==
--- NOTE | 2018-06-14 11:57 | HP ---
History & Physical Update - History History: No Change - Physical Physical: No Change - Assessment Assessment: No Change - Plan Plan: No Change (No Change in HP)
[2018-06-14] MEDS ORDERED: ROCURONIUM BROMIDE 50 MG/5 ML VIAL ONE ×2 (13:48)
[2018-06-14] MEDS ORDERED: fentaNYL CITRATE 250 MCG/5 ML VIAL ONE ×2 (13:49→14:41)
[2018-06-14] MEDS ORDERED: LIDOCAINE HCL/PF 2% SDV 5ML VIAL ONE (14:41)
[2018-06-14] MEDS ORDERED: PROPOFOL 20 ML ONE (14:41)
[2018-06-14] MEDS ORDERED: MIDAZOLAM HCL 2 MG/2 ML SINGLE DOSE VIAL ONE (14:41)
[2018-06-14] MEDS ORDERED: ceFAZolin SODIUM 1 GM VIAL IVPB ONE (15:40)
[2018-06-14] MEDS ORDERED: DESFLURANE GAS 240 ML BOTTLE IH ONE (16:11)
[2018-06-14] MEDS ORDERED: BUPIVACAINE HCL/PF 0.5% (5MG/ML) 10 ML VIAL ONE (16:11)
[2018-06-14] MEDS ORDERED: NEOSTIGMINE METHYLSULFATE 0.5 MG/ML - 10 ML MDV ONE (16:33)
[2018-06-14] MEDS ORDERED: GLYCOPYRROLATE 0.2 MG/1 ML VIAL ONE (16:34)
[2018-06-14] MEDS ORDERED: BUPIVACAINE HCL/PF 0.5% (5MG/ML) 10 ML VIAL IJ ONE (16:50)
--- NOTE | 2018-06-14 16:57 | OP ---
<Elias Montes - Last Filed: 06/14/18 16:55> Operative Note - Note: Operative Date: 06/14/18 Pre-Operative Diagnosis: BRCA+ Operation: Laprascopic bilateral salpingo-oopherectomy, hysteroscopic myomectomy , D&C Post-Operative Diagnosis: Same as Pre-op Surgeon: Tabby Iyer Title Examiner: Elias Montes Anesthesiologist/FURNITURE MOVER: Lyly Schreiber Anesthesia: General Specimens Removed: As above Estimated Blood Loss (mls): 30 Fluid Volume Replaced (mls): 800 Operative Report Dictated: Yes <Tabby Iyer - Last Filed: 06/15/18 08:39> Operative Note - Note: Pre-Operative Diagnosis: endometrial polyp. abdominal pain. voluntary sterilization Findings: enterolysis of omental adhesions
--- NOTE | 2018-06-14 16:57 | SURG ---
Surgery Hand Fretted Instrument Maker Note Hand Fretted Instrument Maker: Elias Montes PA-C Date of Service: 06/14/18 Diagnosis: BRACA+ Procedure: Laprascopic bilateral salpingo-oopherectomy, hysteroscopic myomectomy, D&C I was present for the entirety of the operative procedure. For further detail, please refer to operative report. Visit type - Case Type Case Type: Scheduled - New patient This patient is new to me today: Yes Date on this admission: 06/14/18
[2018-06-14] MEDS ORDERED: ACETAMINOPHEN 1000 MG/100 ML VIAL (NON FORMULARY) IVPB ONE (17:15)
[2018-06-14] MEDS ORDERED: oxyCODONE HCL 5 MG TABLET PO PRN ×2 (17:32)
[2018-06-14] MEDS ORDERED: ONDANSETRON 4 MG/2 ML VIAL IVPUSH PRN (17:32)
[2018-06-14] MEDS ORDERED: LACTATED RINGERS SOLUTION 1,000 ML IV SCH (17:45)
[2018-06-14] MEDS ORDERED: KETOROLAC TROMETHAMINE 30 MG/1 ML VIAL IVPUSH ONE (17:45)
[2018-06-14] MEDS ORDERED: KETOROLAC TROMETHAMINE 30 MG/1 ML VIAL ONE (17:46)
[2018-06-14] MEDS ORDERED: ACETAMINOPHEN INJECTION 100 ML IVPB ONE (18:24)
[2018-06-14] MEDS ORDERED: ONDANSETRON 4 MG/2 ML VIAL ONE ×2 (18:55→19:16)
[2018-06-14] MEDS ORDERED: ONDANSETRON 4 MG/2 ML VIAL IVPUSH ONE (19:24)
[2018-06-14] MEDS: LACTATED RINGERS SOLUTION 1,000 ML/1,000 ML INFUS.BAG IV SCH (20:45)
[2018-06-14] MEDS ORDERED: ACETAMINOPHEN 325 MG TABLET (FP) PO PRN (21:04)
[2018-06-14] MEDS ORDERED: IBUPROFEN 600 MG TABLET (FP) PO PRN (21:05)
[2018-06-15] MEDS: LACTATED RINGERS SOLUTION 1,000 ML/1,000 ML INFUS.BAG IV SCH (00:14)
[2018-06-15 05:43] VITALS: PULSE 85
[2018-06-15] MEDS ORDERED: ONDANSETRON 4 MG/2 ML VIAL IVPUSH PRN (07:32)
--- NOTE | 2018-06-15 09:26 | OP ---
DATE OF OPERATION: 06/14/2018 PREOPERATIVE DIAGNOSES: Breast cancer susceptibility gene positive, voluntary sterilization and endometrial polyp. OPERATION: Laparoscopic bilateral salpingo-oophorectomy and hysteroscopic myomectomy and suction dilatation and curettage. POSTOPERATIVE DIAGNOSES: Breast cancer susceptibility gene positive, voluntary sterilization and endometrial polyp. SURGEON: Aurea Montgomery MD WHEAT CLEANER: SUNDAY Jimenez ANESTHESIOLOGIST: Lyly Schreiber MD ANESTHESIA: General. ESTIMATED BLOOD LOSS: 30 mL. PROCEDURE: Patient was taken to the operating room, placed in the dorsal lithotomy position, prepped and draped in the usual sterile fashion. A timeout was performed in accordance with hospital regulation. The Garcia catheter was inserted into the bladder. Attention was then drawn to the umbilicus where a scalpel was then used to make a 5-mm umbilical incision. Veress needle was inserted into the cavity. Approximately 3 to 4 L of CO2 was insufflated into the cavity. Veress needle was then removed and a 5-mm trocar was then inserted. Laparoscope and camera were attached. Visualization revealed omental adhesions. Two trocars were inserted under direct visualization. The LigaSure was then used to take down the omentum. Enterolysis was performed. Tubes were bilaterally seen, located and bilateral salpingo-oophorectomy was performed using ligature. Tubes and ovaries were removed through the 11-mm port which was placed on the right side. Specimen was then submitted to Pathology. After hemostasis had been achieved all instruments were then removed, suctioned. CO2 was then removed from the abdomen. Incisions were then closed using 4-0 Biosyn suture. Attention was then drawn to the vagina. Weighted speculum was placed in the vagina. Anterior lip of the cervix grasped with a single-tooth tenaculum. Cervix was then dilated. Some endometrial polyps were seen and also a submucosal myoma was seen anteriorly. Hysteroscopic myomectomy was performed. Suction D & C was then done. All contents were submitted to Pathology. All instruments were then removed. Patient tolerated procedure well. Estimated blood loss 30 mL. AUREA MONTGOMERY M.D. [id number]
--- NOTE | 2018-06-15 10:37 | PN ---
Progress Note (short form) - Note Progress Note: POD #1 Patient stayed last night secondary to n/v. RN spoke with Dr. Iyer who had her converted to 23hr admit. This morning, patient resting comfortably. States no more nausea. She's been OOB and ambulating unassisted. Voiding spontaneously. Tolerating PO diet (2 bowls of oatmeal). Denies n/v/f/c, CP or SOB. Last Vital Signs Temp Pulse Resp BP Pulse Ox 98.4 F 85 20 143/72 97 //18 05:42 18 05:42 18 05:42 18 05:42 06/14/18 19:47 PE Gen: alert. nad ABD: all surgical ports c/d/i. no hematoma LE: soft. scds bilat. nt Problem List - Problems (1) Breast CA Assessment/Plan: POD #1 s/p Laprascopic bilateral salpingo-oopherectomy, hysteroscopic myomectomy , D&C Cleared for discharge home today. Code(s): C50.919 - MALIGNANT NEOPLASM OF UNSP SITE OF UNSPECIFIED FEMALE BREAST
[2018-06-15 12:05] VITALS: BP 142/88; TEMP 98.3
--- NOTE | 2018-06-16 12:47 | PATH ---
Surgical Pathology Report Patient Name: PANKAJ NOLEN [facility]. Rec. #: [id number] /Age/Gender: 1970 (Age: 48) / F Account: [id number] Location: [facility] SURGICAL Taken: 06/14/2018 Received: 06/15/2018 Reported: 06/16/2018 Physicians: Tabby Iyer M.D. Specimen(s) Received A: LEFT FALLOPIAN TUBE AND OVARY B: RIGHT FALLOPIAN TUBE AND OVARY C: ENDOMETRIAL CURETTINGS Clinical History Myomas Final Diagnosis A. FALLOPIAN TUBE AND OVARY, LEFT, SALPINGO-OOPHORECTOMY: UNREMARKABLE OVARY AND FALLOPIAN TUBE INCLUDING FULL LUMINAL PORTION AND FIMBRIATED END. B. FALLOPIAN TUBE AND OVARY, RIGHT, SALPINGO-OOPHORECTOMY: UNREMARKABLE OVARY AND FALLOPIAN TUBE INCLUDING FULL LUMINAL PORTION AND FIMBRIATED END. C. ENDOMETRIAL CURETTINGS, DILATATION CURETTAGE: FRAGMENTS OF ENDOMETRIAL POLYP, SUPERFICIAL MYOMETRIUM, AND BENIGN CERVICAL TISSUE. Electronically Signed Rebecca Bryant M.D. Gross Description A. Received in formalin labeled "left fallopian tube and ovary," is a 1.8 cm in length fimbriated portion of fallopian tube. There is an additional 1.8 cm in length portion of fallopian tube separately received within the same container. The outer surfaces are lopez purple and smooth. Sectioning of the fimbriated fallopian tube reveals an unremarkable lumen. Sectioning of the separately received portion of fallopian tube reveals a dilated lumen. Also received within the same container is a 2.5 x 2.0 x 1.2 cm ovary. The outer surface is hair-pink with a focal defect. Sectioning reveals multiple corpora lutea. There remaining ovarian parenchyma is hair and smooth. Data Processor sections are submitted in 3 cassettes as follows: 1-fimbria; 2-cross sections of fallopian tube; 3-ovary. B. Received in formalin labeled "right fallopian tube and ovary," is a 5 cm in length fimbriated portion of fallopian tube. There is an additional 1.8 cm in length separately received portion of fallopian tube. The outer surface of the fimbriated fallopian tube displays a 1.2 cm greatest dimension paratubal cyst. Sectioning of the fimbriated fallopian tube reveals an unremarkable lumen. Sectioning of the separately received portion of fallopian tube reveals a dilated lumen. Also received within the same container is a 3.0 x 1.8 x 1.5 cm ovary. The outer surface is hair-pink with a focal defect. Sectioning reveals multiple corpora lutea and hemorrhagic cysts measuring up to 0.7 cm in greatest dimension. Data Processor sections are submitted in 3 cassettes as follows: 1-fimbria; 2-cross sections of fallopian tube and paratubal cyst; 3-ovary. C. Received in formalin labeled "endometrial curettings," is a 1.6 x 0.9 x 0.2 cm aggregate of hair-brown soft tissue fragments. The formalin is filtered and the specimen is entirely submitted in one cassette. 06/15/2018 [facility]06/15/2018
== END 2018-06-15 14:56 | disposition home or self-care (01) ==
LOC: JASU-SURG 04:54 → J6S 20:14 → JASU-SURG 06-15 14:56
PROVIDERS: ATTEND Obstetrics & Gynecology
PROC: 0UB24ZZ Excision of Bilateral Ovaries, Percutaneous Endoscopic Approach (ICD-10-PCS; principal; 2018-06-14 11:45)
PROC: 0UB74ZZ Excision of Bilateral Fallopian Tubes, Percutaneous Endoscopic Approach (ICD-10-PCS; 2018-06-14 11:45)
PROC: 0UDB7ZX Extraction of Endometrium, Via Natural or Artificial Opening, Diagnostic (ICD-10-PCS; 2018-06-14 11:45)
PROC: 0UJD8ZZ Inspection of Uterus and Cervix, Via Natural or Artificial Opening Endoscopic (ICD-10-PCS; 2018-06-14 11:45)
DX: Z30.2 Encounter for sterilization (principal); Z15.01 Genetic susceptibility to malignant neoplasm of breast; N84.0 Polyp of corpus uteri
CPT/HCPCS: 36415; 84703; 86850; 86870; 86900; 86901; 86902; 88305-TC; 94760; J0131

== ENCOUNTER 2018-12-16 10:02 | Emergency (ER) | payer OTHER ==
[2018-12-16 10:23] VITALS: BP 180/100; PULSE 97; TEMP 98.4; BMI 43.7
[2018-12-16] MEDS ORDERED: KETOROLAC TROMETHAMINE 60 MG/2 ML VIAL IM ONE (10:49)
[2018-12-16] MEDS ORDERED: KETOROLAC TROMETHAMINE 60 MG/2 ML VIAL ONE (10:51)
--- NOTE | 2018-12-16 10:55 | PDOC ---
History of Present Illness - General Chief Complaint: Back Pain Stated Complaint: LOWER BACK PAIN Time Seen by Provider: 12/16/18 10:33 History Source: Patient Exam Limitations: No Limitations - History of Present Illness Initial Comments: 12/16/18 10:59 States was lifting heavy 98-adypr-onc grandchild and felt pull in her low back. Is progressively worsened since then 3 days ago. Has used ibuprofen with minimal resolved. Has had problems with her back in the past but is resolved with [id number] medications including don't spelled and ibuprofen. Denies fever, denies any changes with bowel or bladder, is ambulatory Occurred: reports: just prior to arrival Severity: reports: mild, moderate Pain Location: reports: back Method of Injury: Yes: unknown Associated Symptoms (Fall): denies symptoms Past History - Travel Traveled outside of the country in the last 30 days: No Close contact w/someone who was outside of country & ill: No - Past Medical History Allergies/Adverse Reactions: Allergies Allergy/AdvReac Type Severity Reaction Status Date / Time No Known Allergies Allergy Verified 12/16/18 10:18 Home Medications: Ambulatory Orders Cyclobenzaprine HCl 10 mg PO Q8H PRN #14 tablet 12/16/18 Naproxen [Naprosyn -] 500 mg PO BID #30 tablet 12/16/18 Anemia: Yes Asthma: No Cancer: No Cardiac Disorders: No CVA: No COPD: No CHF: No Dementia: No Diabetes: No (borderline) GI Disorders: No Disorders: No HTN: No Hypercholesterolemia: No Liver Disease: No Seizures: No Thyroid Disease: No - Surgical History Abdominal Surgery: No Appendectomy: No Cardiac Surgery: No Cholecystectomy: No Lung Surgery: No Neurologic Surgery: No Orthopedic Surgery: No - Suicide/Smoking/Psychosocial Hx Smoking History: Never smoked Have you smoked in the past 12 months: No Hx Alcohol Use: No Drug/Substance Use Hx: No Substance Use Type: None Hx Substance Use Treatment: No Trauma Specific PMHX - Complaint Specific PMHX Back Injury: Yes Review of Systems - Review of Systems Able to Perform ROS?: Yes Is the patient limited Romanian proficient: Yes Constitutional: Yes: Symptoms Reported, See HPI, Malaise. No: Chills, Fever HEENTM: No: Symptoms Reported Respiratory: No: Symptoms reported ABD/GI: Yes: See HPI. No: Symptoms Reported Musculoskeletal: Yes: Symptoms Reported, See HPI, Back Pain, Muscle Pain, Muscle Weakness Integumentary: No: Symptoms Reported All Other Systems: Reviewed and Negative *Physical Exam - Vital Signs Last Vital Signs Temp Pulse Resp BP Pulse Ox 98.4 F 97 H 20 180/100 H 99 12/16/18 10:19 12/16/18 10:19 12/16/18 10:19 12/16/18 10:19 12/16/18 10:19 - Physical Exam General Appearance: Yes: Nourished, Appropriately Dressed, Apparent Distress, Mild Distress HEENT: positive: JOSE MANUEL, Normal ENT Inspection, TMs Normal, Pharynx Normal Musculoskeletal: positive: Normal Inspection, Muscle Spasm (tight tense musculature along the paravertebral spinous muscles at waistline and extending up into thoracic spine, has no crepitus step-offs or bony tenderness along cervical). 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 NML intact, Fully Oriented, Alert, Normal Mood/ Affect, Normal Response Moderate Sedation - Procedure Monitoring Vital Signs: Procedure Monitoring Vital Signs Temperature 98.4 F 12/16/18 10:19 Pulse Rate 97 H 12/16/18 10:19 Respiratory Rate 20 12/16/18 10:19 Blood Pressure 180/100 H 12/16/18 10:19 O2 Sat by Pulse Oximetry (%) 99 12/16/18 10:19 Progress Note - Progress Note Progress Note: Low back strain, will treat with NSAIDs and cyclobenzaprine *DC/Admit/Observation/Transfer Diagnosis at time of Disposition: Back strain Qualifiers: Encounter type: initial encounter Qualified Code(s): S39.012A - Strain of muscle, fascia and tendon of lower back, initial encounter - Discharge Dispostion Disposition: HOME Condition at time of disposition: Stable Decision to Admit order: No - Referrals Referrals: Arvin Jason [Primary Care Provider] - - Patient Instructions Printed Discharge Instructions: DI for Back Strain or Sprain Additional Instructions: Rest, no heavy lifting or exercise until pain is resolved Hot soaks to neck and low back as often as possible/hot showers or Jacuzzis No massage or therapy until spasm is gone Continue Naprosyn 500 mg tablet, 1 tablet every 8 hours for the next 3 days then as needed for pain and swelling Cyclobenzaprine 1-10mg every 8 hours as needed for spasm If not significant improvement within 24 hours with medication and rest regime, followup with private physician for change in medications and /or therapy. - Post Discharge Activity Forms/Work/School Notes: Back to Work
== END 2018-12-16 11:03 | disposition home or self-care (01) ==
LOC: JERFT 10:02
PROC: 3E0233Z Introduction of Anti-inflammatory into Muscle, Percutaneous Approach (ICD-10-PCS; principal; 2018-12-16)
DX: S39.012A Strain of muscle, fascia and tendon of lower back, initial encounter (principal); X50.9XXA Other and unspecified overexertion or strenuous movements or postures, initial encounter; Y93.F2 Activity, caregiving, lifting; Y92.038 Other place in apartment as the place of occurrence of the external cause; Y99.8 Other external cause status
CPT/HCPCS: 99281-25

== ENCOUNTER 2023-10-05 16:34 | Emergency (ER) | payer BC, OTHER ==
[2023-10-05 17:22] VITALS: BP 151/84; PULSE 81; RESP 18; TEMP 98.3; BMI 38.6
== END 2023-10-05 18:31 | disposition home or self-care (01) ==
LOC: JER 16:34 → JERFT 16:34
DX: M25.572 Pain in left ankle and joints of left foot (principal); M25.561 Pain in right knee; W01.0XXA Fall on same level from slipping, tripping and stumbling without subsequent striking against object, initial encounter; X50.1XXA Overexertion from prolonged static or awkward postures, initial encounter
CPT/HCPCS: 73560-TC-RT-FY; 73610-TC-LT-FY; 73630-TC-LT; 99283-25